=== PATIENT | male | born 1955 | race Caucasian/White ===

== ENCOUNTER → 2016-06-21 | Outpatient (REF) | payer BC ==
[~2016-06-21] MED LIST: DIGO0.12 PO; FURO40TA2 PO; GLIM4TAB PO; JANU100T PO; LISI10TA4 PO; METF1000 PO; SIMV40TA2 PO; SPIR25TA2 PO
== END ==
LOC: M LAB REF 12:05
PROVIDERS: ATTEND Nurse Practitioner Adult Health
DX: I50.42 Chronic combined systolic (congestive) and diastolic (congestive) heart failure (principal); Z95.810 Presence of automatic (implantable) cardiac defibrillator

== ENCOUNTER → 2016-06-23 | Outpatient (CLI) | payer BC ==
[~2016-06-23] VITALS: Ht 190.5 cm; Wt 103.4 kg
[~2016-06-23] MED LIST changes: +NS 1,000 ML IV SCH
--- NOTE | 2016-06-23 11:41 | ROOR ---
Patient Name: Maria Alejandra Lopez Procedure Date: 06/23/2016 11:17 AM Date of : 1955 Age: 60 Room: [facility] Gender: Male Note Status: Finalized Procedure: Colonoscopy to 40 cms + Cold Snare Polypectomy( POOR PREP) Incomplete Indications: Screening for colorectal malignant neoplasm, Last colonoscopy: 2003 Providers: Santosh Dickson MD Referring MD: ELLY WOODS JR, MD Requesting Provider: Medicines: Monitored Anesthesia Care Complications: No immediate complications. Procedure: Pre-Anesthesia Assessment: - The heart rate, respiratory rate, oxygen saturations, blood pressure, adequacy of pulmonary ventilation, and response to care were monitored throughout the procedure. The Colonoscope was introduced through the anus with the intention of advancing to the cecum. The scope was advanced to the sigmoid colon before the procedure was aborted. Medications were given. The colonoscopy was performed without difficulty. The patient tolerated the procedure well. The quality of the bowel preparation was inadequate. Findings: The perianal and digital rectal examinations were normal. A small polyp was found at 10 cm proximal to the anus. The polyp was sessile. The polyp was removed with a cold snare. Resection and retrieval were complete. Extensive amounts of stool was found in the recto-sigmoid colon, in the sigmoid colon and in the descending colon, interfering with visualization. The exam was otherwise without abnormality. Impression: - Preparation of the colon was inadequate. - One small polyp at 10 cm proximal to the anus, removed with a cold snare. Resected and retrieved. - Stool in the recto-sigmoid colon, in the sigmoid colon and in the descending colon. - The examination was otherwise normal. - The exam was suboptimal due to patient preparation. Recommendation: - Patient has a contact number available for emergencies. The signs and symptoms of potential delayed complications were discussed with the patient. Return to normal activities tomorrow. Written discharge instructions were provided to the patient. - Discharge patient to home. - Continue present medications. - Await pathology results. - Repeat colonoscopy because the bowel preparation was suboptimal. - The findings and recommendations were discussed with the patient's family. Santosh Dickson MD Santosh Dickson MD 06/23/2016 11:41:02 AM This report has been signed electronically. Number of Addenda: 0 Note Initiated On: 06/23/2016 11:17 AM Estimated Blood Loss: Estimated blood loss: none.
[2016-06-23 12:10] VITALS: BP 147/94
== END | disposition home or self-care (01) ==
LOC: M OPP 09:43
PROVIDERS: ATTEND Internal Medicine Gastroenterology
DX: Z12.11 Encounter for screening for malignant neoplasm of colon (principal); D12.8 Benign neoplasm of rectum; I50.9 Heart failure, unspecified; I25.10 Atherosclerotic heart disease of native coronary artery without angina pectoris; I10 Essential (primary) hypertension; E78.5 Hyperlipidemia, unspecified; Z95.810 Presence of automatic (implantable) cardiac defibrillator; E11.9 Type 2 diabetes mellitus without complications; Z79.84 Long term (current) use of oral hypoglycemic drugs; Z79.899 Other long term (current) drug therapy; Z80.3 Family history of malignant neoplasm of breast

== ENCOUNTER → 2016-09-21 | Outpatient (REF) | payer BC ==
[~2016-09-21] MED LIST changes: -NS 1,000 ML IV SCH
== END ==
LOC: M LAB REF 12:26
PROVIDERS: ATTEND Nurse Practitioner Adult Health
DX: Z95.810 Presence of automatic (implantable) cardiac defibrillator (principal)

== ENCOUNTER → 2017-11-02 | Outpatient (CLI) | payer BC ==
[2017-11-02 13:01] LABS: BASO # 0.1 10^3/uL (0.0-0.2); BASO % 0.8 % (0.0-1.0); EOS # 0.1 10^3/uL (0.0-0.50); EOS % 0.8 % (0.0-3.0); HEMATOCRIT 42.3 % (42.0-52.0); HEMOGLOBIN 14.9 g/dl (13.5-17.5); IMMATURE GRANULOCYTE % 0.3 % (0-3.0); LYMPH # 2.1 10^3/uL (1.5-4.5); LYMPH % 27.5 % (24.0-44.0); MEAN CORPUSCULAR HGB CONC 35.2 g/dl (32.0-36.5); MEAN CORPUSCULAR VOLUME 82.3 fl (80.0-96.0); MONO # 0.5 10^3/uL (0.0-0.8); NEUTROPHILS # 4.8 10^3/uL (1.8-7.7); NEUTROPHILS % 63.6 % (36.0-66.0); PLATELET COUNT, AUTOMATED 213 10^3/uL (150-450); RED BLOOD COUNT 5.14 10^6/uL (4.30-6.10); RED CELL DISTRIBUTION WIDTH 11.3 % (11.5-14.5); WHITE BLOOD COUNT 7.5 10^3/uL (4.0-10.0)
[2017-11-02 13:28] LABS: BLOOD UREA NITROGEN 12 MG/DL (7-18)
[2017-11-02 13:28] LABS: CREATININE FOR GFR 1.06 MG/DL (0.70-1.30); GLOMERULAR FILTRATION RATE > 60.0 (>49)
[2017-11-02 13:33] LABS: ANION GAP 10 MEQ/L (8-16); BLOOD UREA NITROGEN 12 MG/DL (7-18); CALCIUM LEVEL 9.1 MG/DL (8.8-10.2); CARBON DIOXIDE LEVEL 27 MEQ/L (21-32); CHLORIDE LEVEL 97 MEQ/L (98-107); CREATININE FOR GFR 1.07 MG/DL (0.70-1.30); GLOMERULAR FILTRATION RATE > 60.0 (>49); POTASSIUM SERUM 4.3 MEQ/L (3.5-5.1); SODIUM LEVEL 134 MEQ/L (136-145)
[2017-11-02 13:46] LABS: GLUCOSE, FASTING 490 MG/DL (70-100)
== END ==
LOC: M LAB 12:12
DX: I48.91 Unspecified atrial fibrillation (principal)
CPT/HCPCS: 82565

== ENCOUNTER → 2017-11-13 | Outpatient (CLI) | payer BC ==
[2017-11-13 13:51] LABS: BASO % 0.5 % (0.0-1.0); EOS # 0.1 10^3/uL (0.0-0.50); EOS % 0.9 % (0.0-3.0); HEMATOCRIT 42.9 % (42.0-52.0); HEMOGLOBIN 14.4 g/dl (13.5-17.5); IMMATURE GRANULOCYTE % 0.4 % (0-3.0); LYMPH # 2.1 10^3/uL (1.5-4.5); LYMPH % 26.1 % (24.0-44.0); MEAN CORPUSCULAR HGB CONC 33.6 g/dl (32.0-36.5); MEAN CORPUSCULAR VOLUME 86.3 fl (80.0-96.0); MONO # 0.7 10^3/uL (0.0-0.8); MONO % 8.4 % (0.0-5.0); NEUTROPHILS # 5.1 10^3/uL (1.8-7.7); NEUTROPHILS % 63.7 % (36.0-66.0); PLATELET COUNT, AUTOMATED 237 10^3/uL (150-450); RED BLOOD COUNT 4.97 10^6/uL (4.30-6.10); RED CELL DISTRIBUTION WIDTH 11.6 % (11.5-14.5)
[2017-11-13 14:29] LABS: ANION GAP 7 MEQ/L (8-16); BLOOD UREA NITROGEN 12 MG/DL (7-18); CARBON DIOXIDE LEVEL 31 MEQ/L (21-32); CHLORIDE LEVEL 98 MEQ/L (98-107); CREATININE FOR GFR 1.02 MG/DL (0.70-1.30); GLOMERULAR FILTRATION RATE > 60.0 (>49); POTASSIUM SERUM 4.8 MEQ/L (3.5-5.1); SODIUM LEVEL 136 MEQ/L (136-145)
[2017-11-13 14:36] LABS: GLUCOSE, FASTING 420 MG/DL (70-100)
== END ==
LOC: M LAB 13:07
DX: I48.0 Paroxysmal atrial fibrillation (principal)
CPT/HCPCS: 80048

== ENCOUNTER → 2018-01-25 | Outpatient (CLI) | payer BC ==
[2018-01-25 17:35] LABS: HEMOGLOBIN 13.5 g/dl (13.5-17.5); MEAN CORPUSCULAR HEMOGLOBIN 29.3 pg (27.0-33.0); MEAN CORPUSCULAR HGB CONC 33.8 g/dl (32.0-36.5); MEAN CORPUSCULAR VOLUME 86.8 fl (80.0-96.0); PLATELET COUNT, AUTOMATED 203 10^3/uL (150-450); RED BLOOD COUNT 4.61 10^6/uL (4.30-6.10); RED CELL DISTRIBUTION WIDTH 11.6 % (11.5-14.5)
[2018-01-25 18:42] LABS: ANION GAP 7 MEQ/L (8-16); BLOOD UREA NITROGEN 13 MG/DL (7-18); CALCIUM LEVEL 8.3 MG/DL (8.8-10.2); CARBON DIOXIDE LEVEL 28 MEQ/L (21-32); CHLORIDE LEVEL 100 MEQ/L (98-107); CREATININE FOR GFR 0.96 MG/DL (0.70-1.30); GLOMERULAR FILTRATION RATE > 60.0 (>49); GLUCOSE, FASTING 464 MG/DL (70-100); POTASSIUM SERUM 4.2 MEQ/L (3.5-5.1); SODIUM LEVEL 135 MEQ/L (136-145)
== END ==
LOC: M LAB 16:10
DX: I42.9 Cardiomyopathy, unspecified (principal)
CPT/HCPCS: 80048

== ENCOUNTER → 2018-10-01 | Outpatient (CLI) | payer BC ==
[~2018-10-01] MED LIST changes: -METF1000 PO; +METF10004 PO; +SPIR-10 PO; -SPIR25TA2 PO
[2018-10-01 20:04] LABS: BASO # 0.1 10^3/uL (0.0-0.2); BASO % 0.5 % (0.0-1.0); EOS # 0.1 10^3/uL (0.0-0.50); EOS % 0.6 % (0.0-3.0); HEMATOCRIT 41.1 % (42.0-52.0); HEMOGLOBIN 13.7 g/dl (13.5-17.5); LYMPH # 1.7 10^3/uL (1.5-4.5); LYMPH % 18.6 % (24.0-44.0); MEAN CORPUSCULAR HEMOGLOBIN 29.7 pg (27.0-33.0); MEAN CORPUSCULAR HGB CONC 33.3 g/dl (32.0-36.5); MONO # 0.9 10^3/uL (0.0-0.8); MONO % 10.1 % (0.0-5.0); NEUTROPHILS # 6.5 10^3/uL (1.8-7.7); NEUTROPHILS % 69.9 % (36.0-66.0); PLATELET COUNT, AUTOMATED 189 10^3/uL (150-450); RED BLOOD COUNT 4.62 10^6/uL (4.30-6.10); WHITE BLOOD COUNT 9.3 10^3/uL (4.0-10.0)
[2018-10-01 20:20] LABS: HEMOGLOBIN A1c 13.7 %
[2018-10-01 20:30] LABS: ALBUMIN 3.5 GM/DL (3.2-5.2); ALT/SGPT 15 U/L (12-78); BILIRUBIN,TOTAL 0.4 MG/DL (0.2-1.0); BLOOD UREA NITROGEN 9 MG/DL (7-18); C REACTIVE PROTEIN QUANTITATIV 2.94 MG/DL (0.00-0.30); CALCIUM LEVEL 8.9 MG/DL (8.8-10.2); CARBON DIOXIDE LEVEL 32 MEQ/L (21-32); CHLORIDE LEVEL 99 MEQ/L (98-107); CREATININE FOR GFR 1.03 MG/DL (0.70-1.30); GLOMERULAR FILTRATION RATE > 60.0 (>49); GLUCOSE, FASTING 399 MG/DL (70-100); POTASSIUM SERUM 3.9 MEQ/L (3.5-5.1); SODIUM LEVEL 135 MEQ/L (136-145); TOTAL PROTEIN 6.8 GM/DL (6.4-8.2)
[2018-10-01 20:37] LABS: ERYTHROCYTE SEDIMENTATION RATE 10 mm/hr (0-20)
--- NOTE | 2018-10-02 07:28 | REP ---
REASON: Foot pain after dropping heavy object on toes only. No priors. Moderate degenerative changes are seen throughout the mid foot and hind foot region. Mild degenerative changes are seen throughout the digits. There is no acute fracture. There is a large plantar calcaneal heel spur. IMPRESSION: Chronic changes. Electronically Signed by Benjamin Tena DO 10/02/2018 10:20 A
== END ==
LOC: M WUC 17:26
PROVIDERS: ATTEND Physician Assistant
DX: M19.071 Primary osteoarthritis, right ankle and foot (principal); E11.21 Type 2 diabetes mellitus with diabetic nephropathy

== ENCOUNTER → 2020-02-23 | Outpatient (CLI) | payer BC, MEDICARE ==
[~2020-02-23] MED LIST changes: -GLIM4TAB PO; +GLIM4TAB5 PO; -SIMV40TA2 PO; +SIMV40TA20 PO
[2020-02-23 11:19] LABS: BLOOD UREA NITROGEN 11 MG/DL (7-18); CALCIUM LEVEL 8.6 MG/DL (8.8-10.2); CARBON DIOXIDE LEVEL 28 MEQ/L (21-32); CHLORIDE LEVEL 102 MEQ/L (98-107); CREATININE FOR GFR 1.05 MG/DL (0.70-1.30); GLOMERULAR FILTRATION RATE > 60.0 (>49); GLUCOSE, FASTING 297 MG/DL (70-100); MAGNESIUM LEVEL 1.8 MG/DL (1.8-2.4); SODIUM LEVEL 137 MEQ/L (136-145)
== END ==
LOC: M LAB 09:28
PROVIDERS: ATTEND Physician Assistant
DX: I50.42 Chronic combined systolic (congestive) and diastolic (congestive) heart failure (principal); I25.5 Ischemic cardiomyopathy

== ENCOUNTER → 2020-07-20 | Outpatient (REF) | payer BC ==
[~2020-07-20] MED LIST changes: +LISI10TA22 PO; -LISI10TA4 PO
[2020-07-20 16:54] LABS: APPEARANCE, URINE CLEAR (CLEAR); BACTERIA, URINE AUTO NEGATIVE (NEGATIVE); BILIRUBIN, URINE AUTO NEGATIVE (NEGATIVE); BLOOD, URINE BLOOD NEGATIVE (NEGATIVE); COLOR, URINE YELLOW (YELLOW); GLUCOSE, URINE (UA) AUTO 3+ mg/dL (NEGATIVE); KETONE, URINE AUTO NEGATIVE (NEGATIVE); LEUKOCYTE ESTERASE, URINE AUTO NEGATIVE (NEGATIVE); MUCUS, URINE SMALL (NEGATIVE); NITRITE, URINE AUTO NEGATIVE (NEGATIVE); PROTEIN, URINE AUTO NEGATIVE (NEGATIVE); RBC, URINE AUTO 2 /HPF (0-3); SPECIFIC GRAVITY URINE AUTO 1.036 (1.002-1.035); SQUAMOUS EPITHELIAL CELL UR AU 0 /HPF (0-6); UROBILINOGEN, URINE AUTO 0.2 mg/dL (0.0-2.0); WBC, URINE AUTO 0 /HPF (0-3)
== END ==
LOC: M LAB REF 16:19
PROVIDERS: ATTEND Internal Medicine
DX: Z01.818 Encounter for other preprocedural examination (principal)

== ENCOUNTER 2022-01-27 09:52 | Inpatient (IN) | payer BC, MEDICARE ==
[~2022-01-27] VITALS: Ht 188 cm; Wt 86.6 kg
[~2022-01-27 09:52] MED LIST changes: +DIGOXIN 0.125 MG TAB PO SCH
[2022-01-27 12:26] LABS: RSV AMPLIFICATION NEGATIVE (NEGATIVE)
[2022-01-27 12:36] LABS: C REACTIVE PROTEIN QUANTITATIV 35.7 MG/DL (0.00-0.30); CALCIUM LEVEL 9.1 MG/DL (8.8-10.2); CREATININE FOR GFR 1.45 MG/DL (0.70-1.30); GLOMERULAR FILTRATION RATE 51.5 (>49); POTASSIUM SERUM 3.9 MEQ/L (3.5-5.1)
[2022-01-27 13:47] LABS: BASO # 0.1 10^3/uL (0.0-0.2); BASO % 0.3 % (0.0-1.0); HEMATOCRIT 35.7 % (42.0-52.0); HEMOGLOBIN 11.6 g/dl (13.5-17.5); LYMPH # 1.2 10^3/uL (1.5-5.0); LYMPH % 3.5 % (24.0-44.0); MEAN CORPUSCULAR HEMOGLOBIN 28.2 pg (27.0-33.0); MEAN CORPUSCULAR HGB CONC 32.5 g/dl (32.0-36.5); MEAN CORPUSCULAR VOLUME 86.7 fl (80.0-96.0); MONO % 6.8 % (2.0-8.0); NEUTROPHILS # 30.7 10^3/uL (1.5-8.5); PLATELET COUNT, AUTOMATED 357 10^3/uL (150-450); RED BLOOD COUNT 4.12 10^6/uL (4.30-6.10)
[2022-01-27] MEDS ORDERED: cefTRIAXone SOD 2 GM in D5W MINI-BAG PLUS 50 ML IV ONE (13:55)
[2022-01-27] MEDS ORDERED: VANCOMYCIN HCL 1,750 MG in NS 250 ML IV ONE (13:55)
[2022-01-27 14:02] LABS: MONO # 2.4 10^3/uL (0.0-0.8); WHITE BLOOD COUNT 34.9 10^3/uL (4.0-10.0)
[2022-01-27 14:15] LABS: ERYTHROCYTE SEDIMENTATION RATE 85 mm/hr (0-20)
[2022-01-27] MEDS ORDERED: VITMTA PO (14:19)
[2022-01-27] MEDS ORDERED: ASPI81TA26 PO (14:19)
[2022-01-27] MEDS ORDERED: DIGO0.123 PO (14:19)
[2022-01-27] MEDS ORDERED: ENTR1TAB PO (14:23)
[2022-01-27] MEDS ORDERED: HOME MED LIST COMPLETE! XX SCH (14:25)
[2022-01-27] MEDS ORDERED: ISOVUE-370 76% 100ML VIAL As Ordered ONE (14:39)
[2022-01-27] MEDS ORDERED: VANCOMYCIN HCL 750 MG, VIAL MATE ADAPTER 1 EACH in D5W 250 ML IV ONE (15:00)
[2022-01-27] MEDS ORDERED: GLUCAGON INJ 1MG VIAL SC PRN (15:05)
[2022-01-27] MEDS ORDERED: GLUCOSE 4GM CHEW TABLET PO PRN (15:05)
[2022-01-27] MEDS ORDERED: DEXTROSE 50% 50 ML SYRINGE IV PRN (15:05)
[2022-01-27] MEDS ORDERED: TOUJ1.2I SC (15:10)
[2022-01-27] MEDS ORDERED: FARX1TAB3 PO (15:10)
[2022-01-27] MEDS ORDERED: VANCOMYCIN HCL 1,300 MG in IV FLUID PLACE HOLDER 1 EA IV SCH (15:50)
[2022-01-27] MEDS ORDERED: VANCOMYCIN HCL 1,000 MG, VIAL MATE ADAPTER 1 EACH in D5W 250 ML IV ONE (16:00)
[2022-01-27] MEDS ORDERED: CLINDAMYCIN 900 MG in IV 1 EA IV SCH (17:00)
[2022-01-27 17:02] LABS: INR 1.32; PROTHROMBIN TIME 16.6 SECONDS (12.5-14.5)
[2022-01-27 17:03] LABS: PARTIAL THROMBOPLASTIN TIME 29.1 SECONDS (24.8-34.2)
[2022-01-27] MEDS ORDERED: INSULIN LISPRO (NovoLOG) PER UNIT SC SCH (18:00)
[2022-01-27] MEDS: ASPIRIN 81MG ENTERIC TABLET PO SCH (18:01)
[2022-01-27] MEDS: ACETAMINOPHEN TAB 650MG DOSE (2X325MG) PO PRN (18:03)
[2022-01-27] MEDS: MEROPENEM INJ 1 GM in IV 1 EA IV SCH (18:07)
[2022-01-27] MEDS ORDERED: LR 2,000 ML IV ONE (18:20)
[2022-01-27] MEDS ORDERED: HYDROMORPHONE HCL 0.5 MG/ 0.5 ML SYRINGE (J1170 PER 1) IV PRN (18:20)
[2022-01-27] MEDS ORDERED: MIDAZOLAM INJ 2MG/2ML VIAL (J2250 PER 1MG) As Ordered ONE (19:32)
[2022-01-27] MEDS ORDERED: fentaNYL 100 MCG/2 ML INJECTION As Ordered ONE (19:32)
[2022-01-27] MEDS ORDERED: LIDOCAINE 2% 100MG/5ML SDV (FOR ANES.) As Ordered ONE (19:33)
[2022-01-27] MEDS ORDERED: propofoL 200 MG/20 ML VIAL As Ordered ONE (19:33)
[2022-01-27] MEDS ORDERED: ONDANSETRON 4MG 2ML VIAL As Ordered ONE (19:36)
[2022-01-27] MEDS ORDERED: BUPIVACAINE HCL 0.5% 30ML VIAL As Ordered ONE (19:37)
[2022-01-27] MEDS ORDERED: LIDOCAINE 1% SDV 30ML VIAL As Ordered ONE (19:37)
[2022-01-27] MEDS ORDERED: CEFEPIME HCL 1 GM in D5W MINI-BAG PLUS 50 ML IV SCH (20:00)
[2022-01-27] MEDS ORDERED: MORPHINE 2 MG/ML 1ML VIAL IV PRN (21:00)
[2022-01-27] MEDS ORDERED: LR 1,000 ML IV SCH (21:00)
[2022-01-27] MEDS ORDERED: PERCOCET 5MG/325MG TAB PO PRN (21:00)
[2022-01-27] MEDS ORDERED: fentaNYL 100 MCG/2 ML INJECTION IV PRN (21:00)
[2022-01-27] MEDS ORDERED: ONDANSETRON 4MG 2ML VIAL IV PRN (21:00)
[2022-01-27 21:35] VITALS: BP 119/67
[2022-01-27] MEDS: LEVEMIR (INSULIN DETEMIR) 1 UNITS/0.01ML SC SCH (22:52)
[2022-01-27] MEDS: INSULIN LISPRO (NovoLOG) PER UNIT SC SCH (23:07)
[2022-01-27] MEDS: VANCOMYCIN HCL 1,000 MG, VIAL MATE ADAPTER 1 EACH in D5W 250 ML IV SCH (23:19)
[2022-01-28] VITALS (12 sets, daily range): BP systolic 103–115; BP diastolic 52–67; O2SAT 91–95
[2022-01-28] MEDS: MEROPENEM INJ 1 GM in IV 1 EA IV SCH ×3 (01:29→17:44)
[2022-01-28] MEDS: HEPARIN SOD (PORCINE) 5000UNITS/ML 1ML VIAL/SYRINGE SC SCH ×3 (04:59→20:28)
[2022-01-28] MEDS: ACETAMINOPHEN TAB 650MG DOSE (2X325MG) PO PRN (05:00)
[2022-01-28 06:29] LABS: HEMATOCRIT 33.5 % (42.0-52.0); MEAN CORPUSCULAR HEMOGLOBIN 28.2 pg (27.0-33.0); MEAN CORPUSCULAR HGB CONC 32.8 g/dl (32.0-36.5); MEAN CORPUSCULAR VOLUME 85.9 fl (80.0-96.0); PLATELET COUNT, AUTOMATED 353 10^3/uL (150-450); WHITE BLOOD COUNT 26.4 10^3/uL (4.0-10.0)
[2022-01-28 06:45] LABS: HEMOGLOBIN A1c 9.4 %
[2022-01-28 07:06] LABS: ALT/SGPT 11 U/L (12-78); BILIRUBIN,TOTAL 0.4 MG/DL (0.2-1.0); BLOOD UREA NITROGEN 25 MG/DL (7-18); CALCIUM LEVEL 8.8 MG/DL (8.8-10.2); CARBON DIOXIDE LEVEL 30 MEQ/L (21-32); CHLORIDE LEVEL 99 MEQ/L (98-107); CHOLESTEROL LEVEL 108 MG/DL (<200); CHOLESTEROL RISK RATIO 4.695 (<5); CREATININE FOR GFR 1.07 MG/DL (0.70-1.30); GLOMERULAR FILTRATION RATE > 60.0 (>49); GLUCOSE, FASTING 143 MG/DL (70-100); HDL CHOLESTEROL 23 MG/DL (>40); LDL CHOLESTEROL 67 MG/DL (<100); NON-HDL-C 85 MG/DL; POTASSIUM SERUM 3.7 MEQ/L (3.5-5.1); SODIUM LEVEL 135 MEQ/L (136-145); TOTAL PROTEIN 6.2 GM/DL (6.4-8.2); TRIGLYCERIDES LEVEL 90 MG/DL (<150)
[2022-01-28] MEDS: INSULIN LISPRO (NovoLOG) PER UNIT SC SCH ×4 (08:16→20:29)
[2022-01-28] MEDS: ROSUVASTATIN 10 MG TAB (CRESTOR) PO SCH (08:16)
[2022-01-28] MEDS ORDERED: FLUBLOK(EGG FREE)(QUAD)INFLUENZA VACC 0.5ML SYRINGE 18YRS & OLDER IM.IMMUN ONE (09:00)
[2022-01-28] MEDS: DIGOXIN 0.125 MG TAB PO SCH (12:14)
[2022-01-28] MEDS: VANCOMYCIN HCL 1,000 MG, VIAL MATE ADAPTER 1 EACH in D5W 250 ML IV SCH (12:14)
[2022-01-28] MEDS: DAPAGLIFLOZIN PROPANEDIOL 10MG TABLET (FARXIGA) PO SCH (14:07)
[2022-01-28] MEDS ORDERED: PREVNAR-20 VACCINE 0.5ML SYRINGE IM.IMMUN ONE (17:00)
[2022-01-28] MEDS: ASPIRIN 81MG ENTERIC TABLET PO SCH (17:44)
[2022-01-28] MEDS: LEVEMIR (INSULIN DETEMIR) 1 UNITS/0.01ML SC SCH (20:29)
[2022-01-29] VITALS (23 sets, daily range): BP systolic 108–136; BP diastolic 64–74; O2SAT 93–98
[2022-01-29] MEDS: VANCOMYCIN HCL 1,000 MG, VIAL MATE ADAPTER 1 EACH in D5W 250 ML IV SCH (00:58)
[2022-01-29] MEDS: MEROPENEM INJ 1 GM in IV 1 EA IV SCH (02:26)
[2022-01-29] MEDS: HEPARIN SOD (PORCINE) 5000UNITS/ML 1ML VIAL/SYRINGE SC SCH ×3 (06:12→21:51)
[2022-01-29 06:54] LABS: BASO # 0.1 10^3/uL (0.0-0.2); BASO % 0.3 % (0.0-1.0); EOS # 0.4 10^3/uL (0.0-0.5); EOS % 1.8 % (0.0-3.0); HEMATOCRIT 33.2 % (42.0-52.0); HEMOGLOBIN 10.7 g/dl (13.5-17.5); LYMPH # 1.9 10^3/uL (1.5-5.0); LYMPH % 9.1 % (24.0-44.0); MEAN CORPUSCULAR HEMOGLOBIN 28.2 pg (27.0-33.0); MEAN CORPUSCULAR HGB CONC 32.2 g/dl (32.0-36.5); MEAN CORPUSCULAR VOLUME 87.4 fl (80.0-96.0); MONO % 9.7 % (2.0-8.0); NEUTROPHILS # 15.9 10^3/uL (1.5-8.5); NEUTROPHILS % 78.2 % (36.0-66.0); PLATELET COUNT, AUTOMATED 375 10^3/uL (150-450); WHITE BLOOD COUNT 20.4 10^3/uL (4.0-10.0)
[2022-01-29 07:30] LABS: ALBUMIN 1.8 GM/DL (3.2-5.2); ALT/SGPT 18 U/L (12-78); BILIRUBIN,TOTAL 0.3 MG/DL (0.2-1.0); BLOOD UREA NITROGEN 24 MG/DL (7-18); CALCIUM LEVEL 8.3 MG/DL (8.8-10.2); CARBON DIOXIDE LEVEL 30 MEQ/L (21-32); CHLORIDE LEVEL 100 MEQ/L (98-107); CREATININE FOR GFR 0.98 MG/DL (0.70-1.30); GLOMERULAR FILTRATION RATE > 60.0 (>49); GLUCOSE, FASTING 124 MG/DL (70-100); POTASSIUM SERUM 3.5 MEQ/L (3.5-5.1); SODIUM LEVEL 137 MEQ/L (136-145)
[2022-01-29] MEDS: INSULIN LISPRO (NovoLOG) PER UNIT SC SCH ×4 (07:30→20:20)
[2022-01-29] MEDS: SPIRONOLACTONE 25 MG TAB PO SCH (09:00)
[2022-01-29] MEDS: cefTRIAXone SOD 1 GM in D5W MINI-BAG PLUS 50 ML IV SCH (10:08)
[2022-01-29] MEDS: ROSUVASTATIN 10 MG TAB (CRESTOR) PO SCH (10:09)
[2022-01-29] MEDS: ENTRESTO 24-26MG TABLET (SACUBITRIL/VALSARTAN) PO SCH ×2 (10:09→20:19)
[2022-01-29] MEDS: DAPAGLIFLOZIN PROPANEDIOL 10MG TABLET (FARXIGA) PO SCH (10:09)
[2022-01-29] MEDS: ACETAMINOPHEN TAB 650MG DOSE (2X325MG) PO PRN (10:10)
[2022-01-29] MEDS: DIGOXIN 0.125 MG TAB PO SCH (10:12)
[2022-01-29] MEDS: ASPIRIN 81MG ENTERIC TABLET PO SCH (17:38)
[2022-01-29] MEDS: oxyCODONE 5MG TAB PO PRN (19:46)
[2022-01-29] MEDS: LEVEMIR (INSULIN DETEMIR) 1 UNITS/0.01ML SC SCH (20:20)
[2022-01-30] VITALS (18 sets, daily range): BP systolic 105–125; BP diastolic 67–81; O2SAT 93–98
[2022-01-30] MEDS: HEPARIN SOD (PORCINE) 5000UNITS/ML 1ML VIAL/SYRINGE SC SCH ×3 (05:13→22:17)
[2022-01-30 05:41] LABS: BASO # 0.1 10^3/uL (0.0-0.2); BASO % 0.5 % (0.0-1.0); EOS # 0.6 10^3/uL (0.0-0.5); EOS % 3.7 % (0.0-3.0); HEMATOCRIT 35.1 % (42.0-52.0); LYMPH # 2.1 10^3/uL (1.5-5.0); LYMPH % 13.7 % (24.0-44.0); MEAN CORPUSCULAR HEMOGLOBIN 27.6 pg (27.0-33.0); MEAN CORPUSCULAR HGB CONC 31.3 g/dl (32.0-36.5); MEAN CORPUSCULAR VOLUME 88.2 fl (80.0-96.0); MONO # 1.5 10^3/uL (0.0-0.8); MONO % 9.9 % (2.0-8.0); NEUTROPHILS # 11.1 10^3/uL (1.5-8.5); NEUTROPHILS % 71.3 % (36.0-66.0); PLATELET COUNT, AUTOMATED 382 10^3/uL (150-450); RED BLOOD COUNT 3.98 10^6/uL (4.30-6.10); WHITE BLOOD COUNT 15.6 10^3/uL (4.0-10.0)
[2022-01-30 06:23] LABS: ALBUMIN 1.9 GM/DL (3.2-5.2); ALT/SGPT 18 U/L (12-78); BILIRUBIN,TOTAL 0.3 MG/DL (0.2-1.0); BLOOD UREA NITROGEN 19 MG/DL (7-18); CALCIUM LEVEL 8.8 MG/DL (8.8-10.2); CARBON DIOXIDE LEVEL 29 MEQ/L (21-32); CHLORIDE LEVEL 104 MEQ/L (98-107); CREATININE FOR GFR 0.89 MG/DL (0.70-1.30); GLOMERULAR FILTRATION RATE > 60.0 (>49); GLUCOSE, FASTING 188 MG/DL (70-100); POTASSIUM SERUM 3.7 MEQ/L (3.5-5.1); SODIUM LEVEL 137 MEQ/L (136-145); TOTAL PROTEIN 6.9 GM/DL (6.4-8.2)
[2022-01-30] MEDS: DAPAGLIFLOZIN PROPANEDIOL 10MG TABLET (FARXIGA) PO SCH (09:06)
[2022-01-30] MEDS: SPIRONOLACTONE 25 MG TAB PO SCH (09:06)
[2022-01-30] MEDS: INSULIN LISPRO (NovoLOG) PER UNIT SC SCH ×4 (09:06→20:40)
[2022-01-30] MEDS: ROSUVASTATIN 10 MG TAB (CRESTOR) PO SCH (09:07)
[2022-01-30] MEDS: ENTRESTO 24-26MG TABLET (SACUBITRIL/VALSARTAN) PO SCH ×2 (09:07→20:39)
[2022-01-30] MEDS: FUROSEMIDE 40 MG TAB PO SCH (09:07)
[2022-01-30] MEDS: DIGOXIN 0.125 MG TAB PO SCH (09:08)
[2022-01-30] MEDS: cefTRIAXone SOD 1 GM in D5W MINI-BAG PLUS 50 ML IV SCH ×2 (09:48→22:18)
[2022-01-30] MEDS: oxyCODONE 5MG TAB PO PRN (13:34)
[2022-01-30] MEDS: ASPIRIN 81MG ENTERIC TABLET PO SCH (17:53)
[2022-01-30] MEDS: LEVEMIR (INSULIN DETEMIR) 1 UNITS/0.01ML SC SCH (20:39)
[2022-01-31 03:57] VITALS: BP 119/72
[2022-01-31 05:17] LABS: BASO # 0.1 10^3/uL (0.0-0.2); BASO % 0.5 % (0.0-1.0); EOS # 0.5 10^3/uL (0.0-0.5); HEMATOCRIT 34.4 % (42.0-52.0); HEMOGLOBIN 10.8 g/dl (13.5-17.5); LYMPH # 2.8 10^3/uL (1.5-5.0); LYMPH % 16.5 % (24.0-44.0); MEAN CORPUSCULAR HEMOGLOBIN 27.8 pg (27.0-33.0); MEAN CORPUSCULAR HGB CONC 31.4 g/dl (32.0-36.5); MEAN CORPUSCULAR VOLUME 88.4 fl (80.0-96.0); MONO % 9.4 % (2.0-8.0); NEUTROPHILS % 69.4 % (36.0-66.0); PLATELET COUNT, AUTOMATED 407 10^3/uL (150-450); RED BLOOD COUNT 3.89 10^6/uL (4.30-6.10); WHITE BLOOD COUNT 17.2 10^3/uL (4.0-10.0)
[2022-01-31 05:27] LABS: MONO # 1.6 10^3/uL (0.0-0.8)
[2022-01-31] MEDS: HEPARIN SOD (PORCINE) 5000UNITS/ML 1ML VIAL/SYRINGE SC SCH ×3 (05:38→22:02)
[2022-01-31 05:51] LABS: ALBUMIN 1.8 GM/DL (3.2-5.2); ALT/SGPT 17 U/L (12-78); BILIRUBIN,TOTAL 0.1 MG/DL (0.2-1.0); BLOOD UREA NITROGEN 14 MG/DL (7-18); CALCIUM LEVEL 8.2 MG/DL (8.8-10.2); CARBON DIOXIDE LEVEL 31 MEQ/L (21-32); CHLORIDE LEVEL 102 MEQ/L (98-107); GLOMERULAR FILTRATION RATE > 60.0 (>49); GLUCOSE, FASTING 135 MG/DL (70-100); POTASSIUM SERUM 4.2 MEQ/L (3.5-5.1); SODIUM LEVEL 138 MEQ/L (136-145); TOTAL PROTEIN 6.3 GM/DL (6.4-8.2)
[2022-01-31 08:02] VITALS: BP 118/74
[2022-01-31] MEDS: ENTRESTO 24-26MG TABLET (SACUBITRIL/VALSARTAN) PO SCH ×2 (08:43→22:00)
[2022-01-31] MEDS: SPIRONOLACTONE 25 MG TAB PO SCH (08:43)
[2022-01-31] MEDS: DAPAGLIFLOZIN PROPANEDIOL 10MG TABLET (FARXIGA) PO SCH (08:43)
[2022-01-31] MEDS: FUROSEMIDE 40 MG TAB PO SCH (08:43)
[2022-01-31] MEDS: ROSUVASTATIN 10 MG TAB (CRESTOR) PO SCH (08:44)
[2022-01-31] MEDS: DIGOXIN 0.125 MG TAB PO SCH (08:45)
[2022-01-31] MEDS: INSULIN LISPRO (NovoLOG) PER UNIT SC SCH ×4 (08:46→22:01)
[2022-01-31] MEDS: LEVEMIR (INSULIN DETEMIR) 1 UNITS/0.01ML SC SCH ×2 (08:47→22:01)
[2022-01-31] MEDS ORDERED: AMOXICILLIN 500 MG CAP PO SCH (09:00)
[2022-01-31] MEDS: cefTRIAXone SOD 1 GM in D5W MINI-BAG PLUS 50 ML IV SCH ×2 (11:02→22:01)
[2022-01-31 12:00] VITALS: BP 118/73
[2022-01-31] MEDS: ACETAMINOPHEN TAB 650MG DOSE (2X325MG) PO PRN (12:35)
[2022-01-31 16:00] VITALS: BP 118/72
[2022-01-31] MEDS ORDERED: PERCOCET 5MG/325MG TAB PO PRN ×2 (16:25)
[2022-01-31] MEDS: ASPIRIN 81MG ENTERIC TABLET PO SCH (17:46)
[2022-01-31 19:49] VITALS: BP 109/57
[2022-02-01 03:48] VITALS: BP 118/61
[2022-02-01] MEDS: HEPARIN SOD (PORCINE) 5000UNITS/ML 1ML VIAL/SYRINGE SC SCH ×3 (05:59→20:19)
[2022-02-01 06:50] LABS: HEMATOCRIT 35.4 % (42.0-52.0); HEMOGLOBIN 11.3 g/dl (13.5-17.5); MEAN CORPUSCULAR HGB CONC 31.9 g/dl (32.0-36.5); MEAN CORPUSCULAR VOLUME 87.6 fl (80.0-96.0); PLATELET COUNT, AUTOMATED 426 10^3/uL (150-450); RED BLOOD COUNT 4.04 10^6/uL (4.30-6.10); WHITE BLOOD COUNT 16.1 10^3/uL (4.0-10.0)
[2022-02-01] MEDS: INSULIN LISPRO (NovoLOG) PER UNIT SC SCH ×4 (07:30→20:19)
[2022-02-01 07:34] LABS: ALT/SGPT 19 U/L (12-78); BILIRUBIN,TOTAL 0.3 MG/DL (0.2-1.0); BLOOD UREA NITROGEN 13 MG/DL (7-18); CALCIUM LEVEL 8.6 MG/DL (8.8-10.2); CARBON DIOXIDE LEVEL 30 MEQ/L (21-32); CHLORIDE LEVEL 103 MEQ/L (98-107); CREATININE FOR GFR 0.87 MG/DL (0.70-1.30); GLOMERULAR FILTRATION RATE > 60.0 (>49); GLUCOSE, FASTING 62 MG/DL (70-100); POTASSIUM SERUM 4.2 MEQ/L (3.5-5.1); SODIUM LEVEL 139 MEQ/L (136-145); TOTAL PROTEIN 6.7 GM/DL (6.4-8.2)
[2022-02-01 07:50] VITALS: BP 126/71
[2022-02-01] MEDS: LEVEMIR (INSULIN DETEMIR) 1 UNITS/0.01ML SC SCH ×2 (09:00→20:13)
[2022-02-01] MEDS: FUROSEMIDE 40 MG TAB PO SCH (09:17)
[2022-02-01] MEDS: ROSUVASTATIN 10 MG TAB (CRESTOR) PO SCH (09:17)
[2022-02-01] MEDS: ENTRESTO 24-26MG TABLET (SACUBITRIL/VALSARTAN) PO SCH ×2 (09:17→20:27)
[2022-02-01] MEDS: SPIRONOLACTONE 25 MG TAB PO SCH (09:17)
[2022-02-01] MEDS: cefTRIAXone SOD 1 GM in D5W MINI-BAG PLUS 50 ML IV SCH ×2 (09:18→20:19)
[2022-02-01] MEDS: DIGOXIN 0.125 MG TAB PO SCH (09:18)
[2022-02-01 16:00] VITALS: BP 120/70
[2022-02-01] MEDS: ASPIRIN 81MG ENTERIC TABLET PO SCH (17:29)
[2022-02-01 19:47] VITALS: BP 129/80
[2022-02-02 04:28] VITALS: BP 134/79
[2022-02-02] MEDS: HEPARIN SOD (PORCINE) 5000UNITS/ML 1ML VIAL/SYRINGE SC SCH ×3 (06:59→22:49)
[2022-02-02 08:26] VITALS: BP 119/71
[2022-02-02] MEDS: INSULIN LISPRO (NovoLOG) PER UNIT SC SCH ×4 (08:50→20:19)
[2022-02-02] MEDS: ROSUVASTATIN 10 MG TAB (CRESTOR) PO SCH (08:51)
[2022-02-02] MEDS: FUROSEMIDE 40 MG TAB PO SCH (08:51)
[2022-02-02] MEDS: ENTRESTO 24-26MG TABLET (SACUBITRIL/VALSARTAN) PO SCH ×2 (08:51→20:25)
[2022-02-02] MEDS: DIGOXIN 0.125 MG TAB PO SCH (08:51)
[2022-02-02] MEDS: SPIRONOLACTONE 25 MG TAB PO SCH (08:51)
[2022-02-02] MEDS ORDERED: LEVEMIR (INSULIN DETEMIR) 1 UNITS/0.01ML SC SCH ×2 (09:00)
[2022-02-02 09:11] LABS: HEMATOCRIT 36.2 % (42.0-52.0); HEMOGLOBIN 11.5 g/dl (13.5-17.5); MEAN CORPUSCULAR HEMOGLOBIN 28.5 pg (27.0-33.0); MEAN CORPUSCULAR HGB CONC 31.8 g/dl (32.0-36.5); MEAN CORPUSCULAR VOLUME 89.8 fl (80.0-96.0); PLATELET COUNT, AUTOMATED 452 10^3/uL (150-450); RED BLOOD COUNT 4.03 10^6/uL (4.30-6.10)
[2022-02-02 09:41] LABS: ALBUMIN 2.1 GM/DL (3.2-5.2); ALT/SGPT 18 U/L (12-78); BILIRUBIN,TOTAL 0.2 MG/DL (0.2-1.0); BLOOD UREA NITROGEN 13 MG/DL (7-18); CALCIUM LEVEL 8.4 MG/DL (8.8-10.2); CARBON DIOXIDE LEVEL 29 MEQ/L (21-32); CHLORIDE LEVEL 102 MEQ/L (98-107); CREATININE FOR GFR 0.96 MG/DL (0.70-1.30); GLOMERULAR FILTRATION RATE > 60.0 (>49); GLUCOSE, FASTING 233 MG/DL (70-100); POTASSIUM SERUM 4.9 MEQ/L (3.5-5.1); SODIUM LEVEL 135 MEQ/L (136-145); TOTAL PROTEIN 6.8 GM/DL (6.4-8.2)
[2022-02-02] MEDS: cefTRIAXone SOD 1 GM in D5W MINI-BAG PLUS 50 ML IV SCH ×2 (11:14→22:48)
[2022-02-02 16:09] VITALS: BP 125/72
[2022-02-02] MEDS: ASPIRIN 81MG ENTERIC TABLET PO SCH (17:15)
[2022-02-02] MEDS: DAPAGLIFLOZIN PROPANEDIOL 10MG TABLET (FARXIGA) PO SCH (17:16)
[2022-02-02] MEDS: LEVEMIR (INSULIN DETEMIR) 1 UNITS/0.01ML SC SCH (20:24)
[2022-02-02 20:56] VITALS: BP 118/69
[2022-02-02 22:05] VITALS: BP 118/72
[2022-02-02] MEDS: ACETAMINOPHEN TAB 650MG DOSE (2X325MG) PO PRN (22:47)
[2022-02-03] MEDS: HEPARIN SOD (PORCINE) 5000UNITS/ML 1ML VIAL/SYRINGE SC SCH (05:39)
[2022-02-03 06:00] VITALS: BP 120/71
[2022-02-03 06:12] LABS: HEMATOCRIT 35.2 % (42.0-52.0); HEMOGLOBIN 11.1 g/dl (13.5-17.5); MEAN CORPUSCULAR HEMOGLOBIN 27.9 pg (27.0-33.0); MEAN CORPUSCULAR HGB CONC 31.5 g/dl (32.0-36.5); MEAN CORPUSCULAR VOLUME 88.4 fl (80.0-96.0); PLATELET COUNT, AUTOMATED 415 10^3/uL (150-450); RED BLOOD COUNT 3.98 10^6/uL (4.30-6.10); WHITE BLOOD COUNT 12.9 10^3/uL (4.0-10.0)
[2022-02-03 06:47] LABS: ALBUMIN 2.1 GM/DL (3.2-5.2); ALT/SGPT 17 U/L (12-78); BILIRUBIN,TOTAL 0.1 MG/DL (0.2-1.0); BLOOD UREA NITROGEN 14 MG/DL (7-18); CALCIUM LEVEL 8.4 MG/DL (8.8-10.2); CARBON DIOXIDE LEVEL 31 MEQ/L (21-32); CHLORIDE LEVEL 103 MEQ/L (98-107); CREATININE FOR GFR 0.92 MG/DL (0.70-1.30); GLOMERULAR FILTRATION RATE > 60.0 (>49); GLUCOSE, FASTING 144 MG/DL (70-100); POTASSIUM SERUM 4.4 MEQ/L (3.5-5.1); SODIUM LEVEL 139 MEQ/L (136-145); TOTAL PROTEIN 6.8 GM/DL (6.4-8.2)
[2022-02-03] MEDS ORDERED: AMOX500T PO (07:37)
[2022-02-03] MEDS ORDERED: PROB1CAP10 PO (07:37)
[2022-02-03] MEDS ORDERED: CRES40TA PO (07:45)
[2022-02-03] MEDS ORDERED: TRAM50TA2 PO (07:46)
[2022-02-03] MEDS ORDERED: TOUJ1.2I SC (07:49)
[2022-02-03] MEDS: FUROSEMIDE 40 MG TAB PO SCH (08:12)
[2022-02-03] MEDS: INSULIN LISPRO (NovoLOG) PER UNIT SC SCH (08:13)
[2022-02-03] MEDS: ENTRESTO 24-26MG TABLET (SACUBITRIL/VALSARTAN) PO SCH (08:13)
[2022-02-03] MEDS: DAPAGLIFLOZIN PROPANEDIOL 10MG TABLET (FARXIGA) PO SCH (08:13)
[2022-02-03] MEDS: DIGOXIN 0.125 MG TAB PO SCH (08:13)
[2022-02-03] MEDS: SPIRONOLACTONE 25 MG TAB PO SCH (08:13)
[2022-02-03] MEDS: ROSUVASTATIN 10 MG TAB (CRESTOR) PO SCH (08:13)
[2022-02-03] MEDS ORDERED: LEVEMIR (INSULIN DETEMIR) 1 UNITS/0.01ML SC SCH (09:00)
[2022-02-03] MEDS ORDERED: PREVNAR-20 VACCINE 0.5ML SYRINGE IM.IMMUN ONE (10:00)
[2022-02-03] MEDS: cefTRIAXone SOD 1 GM in D5W MINI-BAG PLUS 50 ML IV SCH (10:35)
== END 2022-02-03 12:09 | disposition home or self-care (01) | DRG 710 ==
LOC: M ED 09:52 → M ED INP 14:57 → M PCU 21:38 → M MSPAV 02-02 22:01
PROVIDERS: ADMIT Student in an Organized Health Care Education/Training Program; ATTEND Internal Medicine
PROC: 0QDN0ZZ Extraction of Right Metatarsal, Open Approach (ICD-10-PCS; 2022-01-27)
PROC: 0Y6M0ZB Detachment at Right Foot, Partial 2nd Ray, Open Approach (ICD-10-PCS; principal; 2022-01-27 17:00)
PROC: 0LBV0ZZ Excision of Right Foot Tendon, Open Approach (ICD-10-PCS; 2022-01-31)
DX: A41.9 Sepsis, unspecified organism (principal); M72.6 Necrotizing fasciitis; A48.0 Gas gangrene; N17.9 Acute kidney failure, unspecified; E11.621 Type 2 diabetes mellitus with foot ulcer; E11.42 Type 2 diabetes mellitus with diabetic polyneuropathy; E11.52 Type 2 diabetes mellitus with diabetic peripheral angiopathy with gangrene; I50.9 Heart failure, unspecified; E11.69 Type 2 diabetes mellitus with other specified complication; L03.115 Cellulitis of right lower limb; L97.419 Non-pressure chronic ulcer of right heel and midfoot with unspecified severity; E78.00 Pure hypercholesterolemia, unspecified; Z95.810 Presence of automatic (implantable) cardiac defibrillator; I25.10 Atherosclerotic heart disease of native coronary artery without angina pectoris; Z91.14 Patient's other noncompliance with medication regimen; Z79.4 Long term (current) use of insulin; Z79.82 Long term (current) use of aspirin; Z79.899 Other long term (current) drug therapy; M86.8X7 Other osteomyelitis, ankle and foot; B95.4 Other streptococcus as the cause of diseases classified elsewhere

== ENCOUNTER 2022-03-24 16:44 | Inpatient (IN) | payer BC, MEDICARE ==
[~2022-03-24] VITALS: Ht 190.5 cm; Wt 84.0 kg
[~2022-03-24 16:44] MED LIST changes: +AMOX500T PO; +ASPI81TA26 PO; +CRES40TA PO; +DIGO0.123 PO; -DIGOXIN 0.125 MG TAB PO SCH; +ENTR1TAB PO; +FARX1TAB3 PO; +PROB1CAP10 PO; +TOUJ1.2I SC; +TRAM50TA2 PO; +UNRESOLVED CLARIFICATION ENTRY XX SCH; +VITMTA PO
[2022-03-24] MEDS ORDERED: PIPERACILLIN/TAZOBACTAM SOD 3.375 GM in D5W MINI-BAG PLUS 50 ML IV SCH (18:45)
[2022-03-24] MEDS ORDERED: VANCOMYCIN HCL 1,000 MG, VIAL MATE ADAPTER 1 EACH in NS 250 ML IV SCH (18:45)
[2022-03-24] MEDS ORDERED: GLUCAGON INJ 1MG VIAL SC PRN (18:50)
[2022-03-24] MEDS ORDERED: GLUCOSE 4GM CHEW TABLET PO PRN (18:50)
[2022-03-24] MEDS ORDERED: INSULIN LISPRO (NovoLOG) PER UNIT SC SCH (18:50)
[2022-03-24] MEDS ORDERED: DEXTROSE 50% 50 ML SYRINGE IV PRN (18:50)
[2022-03-24 19:12] LABS: BASO % 0.3 % (0.0-1.0); EOS # 0.1 10^3/uL (0.0-0.5); EOS % 0.6 % (0.0-3.0); HEMATOCRIT 31.3 % (42.0-52.0); HEMOGLOBIN 10.1 g/dl (13.5-17.5); LYMPH # 1.7 10^3/uL (1.5-5.0); LYMPH % 18.8 % (24.0-44.0); MEAN CORPUSCULAR HEMOGLOBIN 28.2 pg (27.0-33.0); MEAN CORPUSCULAR HGB CONC 32.3 g/dl (32.0-36.5); MEAN CORPUSCULAR VOLUME 87.4 fl (80.0-96.0); MONO % 10.8 % (2.0-8.0); NEUTROPHILS # 6.2 10^3/uL (1.5-8.5); NEUTROPHILS % 69.2 % (36.0-66.0); PLATELET COUNT, AUTOMATED 213 10^3/uL (150-450); RED BLOOD COUNT 3.58 10^6/uL (4.30-6.10)
[2022-03-24 19:36] LABS: BLOOD UREA NITROGEN 20 MG/DL (9-23); CALCIUM LEVEL 8.2 MG/DL (8.3-10.6); CARBON DIOXIDE LEVEL 30 MMOL/L (20-31); CHLORIDE LEVEL 98 MMOL/L (98-107); CREATININE FOR GFR 1.09 MG/DL (0.70-1.30); GLOMERULAR FILTRATION RATE > 60.0 (>49); GLUCOSE, FASTING 182 MG/DL (74-106); POTASSIUM SERUM 3.8 MMOL/L (3.5-5.1); SODIUM LEVEL 134 MMOL/L (136-145)
[2022-03-24] MEDS: INSULIN LISPRO (NovoLOG) PER UNIT SC SCH (19:54)
[2022-03-24] MEDS ORDERED: ELIQ5TAB PO (20:01)
[2022-03-24] MEDS ORDERED: ROSU40TA4 PO (20:01)
[2022-03-24] MEDS ORDERED: TRAM50TA2 PO (20:01)
[2022-03-24] MEDS ORDERED: TOUJ1.2I SC (20:01)
[2022-03-24] MEDS ORDERED: BACTDSTA PO (20:01)
[2022-03-24] MEDS ORDERED: CEPH500C PO (20:01)
[2022-03-24] MEDS ORDERED: PROB1CAP10 PO (20:12)
[2022-03-24] MEDS ORDERED: VITMTA PO (20:12)
[2022-03-24] MEDS ORDERED: ACET500T15 PO (20:12)
[2022-03-24] MEDS ORDERED: INSU100I12 SQ ×2 (20:12)
[2022-03-24] MEDS ORDERED: HOME MED LIST COMPLETE! XX SCH (20:15)
[2022-03-24 20:25] LABS: ERYTHROCYTE SEDIMENTATION RATE 56 mm/hr (0-20)
[2022-03-24] MEDS ORDERED: VANCOMYCIN HCL 1,000 MG, VIAL MATE ADAPTER 1 EACH in D5W 250 ML IV ONE (21:00)
[2022-03-24 21:31] VITALS: BP 112/64
[2022-03-24] MEDS: ASPIRIN 81MG ENTERIC TABLET PO SCH (21:38)
[2022-03-24] MEDS: ROSUVASTATIN 10 MG TAB (CRESTOR) PO SCH (21:38)
[2022-03-24] MEDS ORDERED: VANCOMYCIN HCL 750 MG, VIAL MATE ADAPTER 1 EACH in D5W 250 ML IV ONE (22:00)
[2022-03-24] MEDS: ENTRESTO 24-26MG TABLET (SACUBITRIL/VALSARTAN) PO SCH (23:27)
[2022-03-24] MEDS: LR 1,000 ML IV SCH (23:38)
[2022-03-25] MEDS: INSULIN LISPRO (NovoLOG) PER UNIT SC SCH ×4 (05:51→17:59)
[2022-03-25] MEDS: VANCOMYCIN HCL 1,000 MG, VIAL MATE ADAPTER 1 EACH in D5W 250 ML IV SCH ×2 (05:51→18:00)
[2022-03-25 06:00] VITALS: BP 116/66
[2022-03-25] MEDS: LR 1,000 ML IV SCH ×3 (07:59→23:59)
[2022-03-25 08:40] LABS: BASO % 0.3 % (0.0-1.0); EOS # 0.1 10^3/uL (0.0-0.5); EOS % 1.5 % (0.0-3.0); HEMATOCRIT 33.2 % (42.0-52.0); HEMOGLOBIN 10.5 g/dl (13.5-17.5); LYMPH # 2.1 10^3/uL (1.5-5.0); LYMPH % 24.5 % (24.0-44.0); MEAN CORPUSCULAR HEMOGLOBIN 27.7 pg (27.0-33.0); MEAN CORPUSCULAR HGB CONC 31.6 g/dl (32.0-36.5); MEAN CORPUSCULAR VOLUME 87.6 fl (80.0-96.0); MONO % 10.9 % (2.0-8.0); NEUTROPHILS # 5.4 10^3/uL (1.5-8.5); NEUTROPHILS % 62.5 % (36.0-66.0); PLATELET COUNT, AUTOMATED 224 10^3/uL (150-450); RED BLOOD COUNT 3.79 10^6/uL (4.30-6.10); WHITE BLOOD COUNT 8.7 10^3/uL (4.0-10.0)
[2022-03-25] MEDS: FUROSEMIDE 40 MG TAB PO SCH (08:57)
[2022-03-25] MEDS: ENTRESTO 24-26MG TABLET (SACUBITRIL/VALSARTAN) PO SCH ×2 (08:57→20:02)
[2022-03-25] MEDS: DIGOXIN 0.125 MG TAB PO SCH (08:57)
[2022-03-25] MEDS: LACTOBACILLUS ACIDOPHILUS CAP (BACID) PO SCH (08:57)
[2022-03-25] MEDS ORDERED: LEVEMIR (INSULIN DETEMIR) 1 UNITS/0.01ML SC ONE (09:00)
[2022-03-25] MEDS ORDERED: PREVNAR-20 VACCINE 0.5ML SYRINGE IM.IMMUN ONE (09:00)
[2022-03-25 09:06] LABS: BLOOD UREA NITROGEN 15 MG/DL (9-23); CALCIUM LEVEL 8.4 MG/DL (8.3-10.6); CARBON DIOXIDE LEVEL 25 MMOL/L (20-31); CHLORIDE LEVEL 102 MMOL/L (98-107); CREATININE FOR GFR 0.86 MG/DL (0.70-1.30); GLOMERULAR FILTRATION RATE > 60.0 (>49); GLUCOSE, FASTING 107 MG/DL (74-106); SODIUM LEVEL 138 MMOL/L (136-145)
[2022-03-25 14:00] VITALS: BP 114/65
[2022-03-25] MEDS: ASPIRIN 81MG ENTERIC TABLET PO SCH (20:02)
[2022-03-25] MEDS: ROSUVASTATIN 10 MG TAB (CRESTOR) PO SCH (20:02)
[2022-03-25 22:00] VITALS: BP 109/61
[2022-03-25] MEDS ORDERED: HEPARIN SOD (PORCINE) 5000UNITS/ML 1ML VIAL/SYRINGE SQ SCH (22:00)
[2022-03-26] VITALS (9 sets, daily range): BP systolic 105–122; BP diastolic 57–65
[2022-03-26] MEDS: INSULIN LISPRO (NovoLOG) PER UNIT SC SCH ×5 (00:12→21:00)
[2022-03-26] MEDS: VANCOMYCIN HCL 1,000 MG, VIAL MATE ADAPTER 1 EACH in D5W 250 ML IV SCH ×2 (04:37→17:25)
[2022-03-26] MEDS: LR 1,000 ML IV SCH ×3 (04:39→23:59)
[2022-03-26 05:39] LABS: BASO # 0.1 10^3/uL (0.0-0.2); BASO % 0.5 % (0.0-1.0); EOS # 0.2 10^3/uL (0.0-0.5); EOS % 2.6 % (0.0-3.0); HEMATOCRIT 29.8 % (42.0-52.0); HEMOGLOBIN 9.5 g/dl (13.5-17.5); LYMPH # 2.5 10^3/uL (1.5-5.0); LYMPH % 27.7 % (24.0-44.0); MEAN CORPUSCULAR HEMOGLOBIN 27.8 pg (27.0-33.0); MEAN CORPUSCULAR HGB CONC 31.9 g/dl (32.0-36.5); MEAN CORPUSCULAR VOLUME 87.1 fl (80.0-96.0); MONO # 1.1 10^3/uL (0.0-0.8); MONO % 11.6 % (2.0-8.0); NEUTROPHILS # 5.2 10^3/uL (1.5-8.5); NEUTROPHILS % 57.2 % (36.0-66.0); PLATELET COUNT, AUTOMATED 253 10^3/uL (150-450); RED BLOOD COUNT 3.42 10^6/uL (4.30-6.10); WHITE BLOOD COUNT 9.1 10^3/uL (4.0-10.0)
[2022-03-26 06:05] LABS: BLOOD UREA NITROGEN 11 MG/DL (9-23); CALCIUM LEVEL 8.1 MG/DL (8.3-10.6); CARBON DIOXIDE LEVEL 29 MMOL/L (20-31); CHLORIDE LEVEL 103 MMOL/L (98-107); CREATININE FOR GFR 0.83 MG/DL (0.70-1.30); GLOMERULAR FILTRATION RATE > 60.0 (>49); GLUCOSE, FASTING 99 MG/DL (74-106); POTASSIUM SERUM 3.7 MMOL/L (3.5-5.1); SODIUM LEVEL 140 MMOL/L (136-145)
[2022-03-26 07:58] LABS: MAGNESIUM LEVEL 1.8 MG/DL (1.8-2.4)
[2022-03-26] MEDS: LACTOBACILLUS ACIDOPHILUS CAP (BACID) PO SCH (08:05)
[2022-03-26] MEDS: ENTRESTO 24-26MG TABLET (SACUBITRIL/VALSARTAN) PO SCH ×2 (08:06→20:10)
[2022-03-26] MEDS: DIGOXIN 0.125 MG TAB PO SCH (08:06)
[2022-03-26] MEDS: FUROSEMIDE 40 MG TAB PO SCH (08:06)
[2022-03-26] MEDS: LEVEMIR (INSULIN DETEMIR) 1 UNITS/0.01ML SC SCH (08:07)
[2022-03-26] MEDS ORDERED: BUPIVACAINE HCL 0.5% 30ML VIAL As Ordered ONE (13:49)
[2022-03-26] MEDS ORDERED: LIDOCAINE 1% SDV 30ML VIAL As Ordered ONE (13:49)
[2022-03-26] MEDS ORDERED: fentaNYL 100 MCG/2 ML INJECTION As Ordered ONE ×2 (14:13→14:50)
[2022-03-26] MEDS ORDERED: propofoL 200 MG/20 ML VIAL As Ordered ONE ×2 (14:13→15:05)
[2022-03-26] MEDS ORDERED: MIDAZOLAM INJ 2MG/2ML VIAL (J2250 PER 1MG) As Ordered ONE ×2 (14:13→14:50)
[2022-03-26] MEDS: traMADol 50 MG TAB PO PRN (18:13)
[2022-03-26] MEDS: ASPIRIN 81MG ENTERIC TABLET PO SCH (20:10)
[2022-03-26] MEDS: ROSUVASTATIN 10 MG TAB (CRESTOR) PO SCH (20:10)
[2022-03-27] MEDS: VANCOMYCIN HCL 1,000 MG, VIAL MATE ADAPTER 1 EACH in D5W 250 ML IV SCH ×2 (05:09→17:04)
[2022-03-27] MEDS: traMADol 50 MG TAB PO PRN ×2 (05:13→20:01)
[2022-03-27 06:00] VITALS: BP 103/60
[2022-03-27 07:16] LABS: BASO # 0.1 10^3/uL (0.0-0.2); BASO % 0.4 % (0.0-1.0); EOS # 0.4 10^3/uL (0.0-0.5); EOS % 3.1 % (0.0-3.0); HEMATOCRIT 29.5 % (42.0-52.0); HEMOGLOBIN 9.3 g/dl (13.5-17.5); LYMPH # 2.2 10^3/uL (1.5-5.0); LYMPH % 19.2 % (24.0-44.0); MEAN CORPUSCULAR HGB CONC 31.5 g/dl (32.0-36.5); MEAN CORPUSCULAR VOLUME 88.9 fl (80.0-96.0); MONO # 1.2 10^3/uL (0.0-0.8); MONO % 10.7 % (2.0-8.0); NEUTROPHILS # 7.7 10^3/uL (1.5-8.5); PLATELET COUNT, AUTOMATED 287 10^3/uL (150-450); RED BLOOD COUNT 3.32 10^6/uL (4.30-6.10); WHITE BLOOD COUNT 11.6 10^3/uL (4.0-10.0)
[2022-03-27 07:46] LABS: BLOOD UREA NITROGEN 9 MG/DL (9-23); CALCIUM LEVEL 7.9 MG/DL (8.3-10.6); CARBON DIOXIDE LEVEL 32 MMOL/L (20-31); CHLORIDE LEVEL 101 MMOL/L (98-107); CREATININE FOR GFR 0.81 MG/DL (0.70-1.30); GLOMERULAR FILTRATION RATE > 60.0 (>49); GLUCOSE, FASTING 206 MG/DL (74-106); POTASSIUM SERUM 4.1 MMOL/L (3.5-5.1); SODIUM LEVEL 138 MMOL/L (136-145)
[2022-03-27] MEDS: INSULIN LISPRO (NovoLOG) PER UNIT SC SCH ×4 (08:08→19:56)
[2022-03-27] MEDS: FUROSEMIDE 40 MG TAB PO SCH (08:09)
[2022-03-27] MEDS: LEVEMIR (INSULIN DETEMIR) 1 UNITS/0.01ML SC SCH (08:09)
[2022-03-27] MEDS: LACTOBACILLUS ACIDOPHILUS CAP (BACID) PO SCH (08:09)
[2022-03-27] MEDS: ENTRESTO 24-26MG TABLET (SACUBITRIL/VALSARTAN) PO SCH ×2 (08:09→20:02)
[2022-03-27] MEDS: DIGOXIN 0.125 MG TAB PO SCH (08:11)
[2022-03-27] MEDS: APIXABAN 5 MG TAB (ELIQUIS) PO SCH ×2 (11:08→20:02)
[2022-03-27 14:00] VITALS: BP 102/60
[2022-03-27 19:50] VITALS: BP 105/60
[2022-03-27] MEDS: ASPIRIN 81MG ENTERIC TABLET PO SCH (20:02)
[2022-03-27] MEDS: ROSUVASTATIN 10 MG TAB (CRESTOR) PO SCH (20:02)
[2022-03-28] MEDS: VANCOMYCIN HCL 1,000 MG, VIAL MATE ADAPTER 1 EACH in D5W 250 ML IV SCH (04:33)
[2022-03-28] MEDS: traMADol 50 MG TAB PO PRN (04:34)
[2022-03-28 05:17] VITALS: BP 109/65
[2022-03-28 06:13] LABS: BASO # 0.1 10^3/uL (0.0-0.2); BASO % 0.5 % (0.0-1.0); EOS # 0.5 10^3/uL (0.0-0.5); EOS % 4.9 % (0.0-3.0); HEMATOCRIT 31.9 % (42.0-52.0); HEMOGLOBIN 9.8 g/dl (13.5-17.5); LYMPH # 2.9 10^3/uL (1.5-5.0); LYMPH % 26.9 % (24.0-44.0); MEAN CORPUSCULAR HEMOGLOBIN 27.8 pg (27.0-33.0); MEAN CORPUSCULAR HGB CONC 30.7 g/dl (32.0-36.5); MEAN CORPUSCULAR VOLUME 90.4 fl (80.0-96.0); MONO # 1.1 10^3/uL (0.0-0.8); MONO % 10.4 % (2.0-8.0); NEUTROPHILS # 6.1 10^3/uL (1.5-8.5); NEUTROPHILS % 56.7 % (36.0-66.0); PLATELET COUNT, AUTOMATED 326 10^3/uL (150-450); RED BLOOD COUNT 3.53 10^6/uL (4.30-6.10); WHITE BLOOD COUNT 10.8 10^3/uL (4.0-10.0)
[2022-03-28 06:39] LABS: BLOOD UREA NITROGEN 7 MG/DL (9-23); CARBON DIOXIDE LEVEL 32 MMOL/L (20-31); CHLORIDE LEVEL 99 MMOL/L (98-107); CREATININE FOR GFR 0.82 MG/DL (0.70-1.30); GLOMERULAR FILTRATION RATE > 60.0 (>49); GLUCOSE, FASTING 186 MG/DL (74-106); POTASSIUM SERUM 4.1 MMOL/L (3.5-5.1); SODIUM LEVEL 136 MMOL/L (136-145)
[2022-03-28] MEDS: LEVEMIR (INSULIN DETEMIR) 1 UNITS/0.01ML SC SCH (08:17)
[2022-03-28] MEDS: ENTRESTO 24-26MG TABLET (SACUBITRIL/VALSARTAN) PO SCH (08:18)
[2022-03-28] MEDS: FUROSEMIDE 40 MG TAB PO SCH (08:18)
[2022-03-28] MEDS: DIGOXIN 0.125 MG TAB PO SCH (08:18)
[2022-03-28] MEDS: INSULIN LISPRO (NovoLOG) PER UNIT SC SCH ×2 (08:18→12:11)
[2022-03-28] MEDS: LACTOBACILLUS ACIDOPHILUS CAP (BACID) PO SCH (08:18)
[2022-03-28] MEDS: APIXABAN 5 MG TAB (ELIQUIS) PO SCH (08:19)
[2022-03-28] MEDS ORDERED: LEVO1TAB39 PO (11:39)
== END 2022-03-28 13:00 | disposition home or self-care (01) | DRG 982 ==
LOC: EDSTATUS 17:21 → M MS5PR 17:24
PROVIDERS: ADMIT Internal Medicine; ATTEND Internal Medicine
PROC: 0SGM04Z Fusion of Right Metatarsal-Phalangeal Joint with Internal Fixation Device, Open Approach (ICD-10-PCS; principal; 2022-03-26 10:00)
DX: E11.628 Type 2 diabetes mellitus with other skin complications (principal); I50.22 Chronic systolic (congestive) heart failure; L03.90 Cellulitis, unspecified; Z95.810 Presence of automatic (implantable) cardiac defibrillator; I48.91 Unspecified atrial fibrillation; E78.5 Hyperlipidemia, unspecified; I25.10 Atherosclerotic heart disease of native coronary artery without angina pectoris; Z89.421 Acquired absence of other right toe(s); Z79.01 Long term (current) use of anticoagulants; Z79.4 Long term (current) use of insulin; Z79.82 Long term (current) use of aspirin; Z79.899 Other long term (current) drug therapy

== ENCOUNTER → 2022-04-03 | Outpatient (REF) | payer MEDICARE, OTHER ==
[~2022-04-03] MED LIST changes: +ACET500T15 PO; +BACTDSTA PO; +CEPH500C PO; +ELIQ5TAB PO; +INSU100I12 SQ; +LEVO1TAB39 PO; +ROSU40TA4 PO; -UNRESOLVED CLARIFICATION ENTRY XX SCH
== END ==
LOC: M LAB REF 12:18
PROVIDERS: ATTEND Internal Medicine
DX: E11.65 Type 2 diabetes mellitus with hyperglycemia (principal); E11.621 Type 2 diabetes mellitus with foot ulcer; E11.40 Type 2 diabetes mellitus with diabetic neuropathy, unspecified

== ENCOUNTER 2022-07-28 16:37 | Inpatient (IN) | payer MEDICARE, OTHER ==
[~2022-07-28] VITALS: Ht 188 cm; Wt 90.0 kg
[2022-07-28] MEDS ORDERED: SIMV40TA20 PO (17:05)
[2022-07-28] MEDS ORDERED: MORPHINE 2 MG/ML 1ML VIAL IV PRN (18:00)
[2022-07-28 18:46] LABS: BASO # 0.1 10^3/uL (0.0-0.2); BASO % 0.8 % (0.0-1.0); EOS # 0.1 10^3/uL (0.0-0.5); EOS % 0.8 % (0.0-3.0); HEMATOCRIT 37.9 % (42.0-52.0); HEMOGLOBIN 12.2 g/dl (13.5-17.5); LYMPH # 2.2 10^3/uL (1.5-5.0); LYMPH % 24.7 % (24.0-44.0); MEAN CORPUSCULAR HEMOGLOBIN 28.2 pg (27.0-33.0); MEAN CORPUSCULAR HGB CONC 32.2 g/dl (32.0-36.5); MEAN CORPUSCULAR VOLUME 87.5 fl (80.0-96.0); MONO % 11.6 % (2.0-8.0); NEUTROPHILS # 5.4 10^3/uL (1.5-8.5); NEUTROPHILS % 61.8 % (36.0-66.0); PLATELET COUNT, AUTOMATED 240 10^3/uL (150-450); RED BLOOD COUNT 4.33 10^6/uL (4.30-6.10); WHITE BLOOD COUNT 8.8 10^3/uL (4.0-10.0)
[2022-07-28 19:00] LABS: ERYTHROCYTE SEDIMENTATION RATE 72 mm/hr (0-20)
[2022-07-28 19:17] LABS: ALBUMIN 3.5 G/DL (3.2-5.2); ALKALINE PHOSPHATASE 93 U/L (46-116); ALT/SGPT 16 U/L (7.0-40); AST/SGOT < 8 U/L (<34); BILIRUBIN,DIRECT 0.2 MG/DL (<0.4); BILIRUBIN,TOTAL 0.4 MG/DL (0.3-1.2); BLOOD UREA NITROGEN 11 MG/DL (9-23); CALCIUM LEVEL 8.9 MG/DL (8.3-10.6); CARBON DIOXIDE LEVEL 27 MMOL/L (20-31); CHLORIDE LEVEL 102 MMOL/L (98-107); CREATININE FOR GFR 0.92 MG/DL (0.70-1.30); GLOMERULAR FILTRATION RATE > 60.0 (>49); GLUCOSE, FASTING 160 MG/DL (74-106); POTASSIUM SERUM 4.3 MMOL/L (3.5-5.1); SODIUM LEVEL 136 MMOL/L (136-145); TOTAL PROTEIN 7.5 G/DL (5.7-8.2)
[2022-07-28] MEDS ORDERED: PIPERACILLIN/TAZOBACTAM SOD 3.375 GM in D5W MINI-BAG PLUS 50 ML IV ONE (19:55)
[2022-07-28 20:09] LABS: RSV AMPLIFICATION NEGATIVE (NEGATIVE)
[2022-07-28] MEDS ORDERED: ACETAMINOPHEN TAB 650MG DOSE (2X325MG) PO PRN (22:00)
[2022-07-28] MEDS ORDERED: LEXA1TAB PO (22:33)
[2022-07-28] MEDS ORDERED: PROBCAP14 PO (22:33)
[2022-07-28] MEDS ORDERED: SPIR-10 PO (22:33)
[2022-07-28] MEDS ORDERED: ACET-897 PO (22:34)
[2022-07-28] MEDS ORDERED: HOME MED LIST COMPLETE! XX SCH (22:35)
[2022-07-28 22:48] VITALS: BP 129/84
[2022-07-29] MEDS ORDERED: DEXTROSE 50% 50ML SYRINGE IV PRN ×2 (01:15→10:45)
[2022-07-29] MEDS ORDERED: GLUCAGON INJ 1MG VIAL SC PRN ×2 (01:15→10:45)
[2022-07-29] MEDS ORDERED: GLUCOSE 4GM CHEW TABLET PO PRN ×2 (01:15→10:45)
[2022-07-29] MEDS ORDERED: VANCOMYCIN HCL 1,000 MG, VIAL MATE ADAPTER 1 EACH in D5W 250 ML IV ONE (02:00)
[2022-07-29] MEDS: INSULIN LISPRO (NovoLOG) PER UNIT SC SCH ×5 (02:21→20:50)
[2022-07-29] MEDS ORDERED: VANCOMYCIN HCL 750 MG, VIAL MATE ADAPTER 1 EACH in D5W 250 ML IV ONE (03:00)
[2022-07-29 06:00] VITALS: BP 126/71
[2022-07-29] MEDS: ENTRESTO 24-26MG TABLET (SACUBITRIL/VALSARTAN) PO SCH ×2 (08:47→20:48)
[2022-07-29] MEDS: PIPERACILLIN/TAZOBACTAM SOD 3.375 GM in D5W MINI-BAG PLUS 50 ML IV SCH ×3 (08:47→20:50)
[2022-07-29] MEDS: DIGOXIN 0.125 MG TAB PO SCH (08:47)
[2022-07-29] MEDS: MULTIVITAMINS/MINERALS THERAP 1 TAB PO SCH (08:47)
[2022-07-29] MEDS: SPIRONOLACTONE 25 MG TAB PO SCH (08:48)
[2022-07-29] MEDS: FUROSEMIDE 40 MG TAB PO SCH (08:48)
[2022-07-29] MEDS: ESCITALOPRAM OXALATE 10 MG TAB (LEXAPRO) PO SCH (08:48)
[2022-07-29] MEDS: traMADol 50 MG TAB PO PRN (08:51)
[2022-07-29] MEDS ORDERED: DAPAGLIFLOZIN PROPANEDIOL 10MG TABLET (FARXIGA) PO SCH (09:00)
[2022-07-29] MEDS: SILVER SULFADIAZINE 1% CR 50 GM JAR TOP SCH ×2 (10:29→20:52)
[2022-07-29] MEDS: VANCOMYCIN HCL 1,000 MG, VIAL MATE ADAPTER 1 EACH in NS 250 ML IV SCH ×2 (10:39→22:23)
[2022-07-29 11:56] LABS: HEMATOCRIT 36.8 % (42.0-52.0); HEMOGLOBIN 11.6 g/dl (13.5-17.5); MEAN CORPUSCULAR HEMOGLOBIN 27.8 pg (27.0-33.0); MEAN CORPUSCULAR HGB CONC 31.5 g/dl (32.0-36.5); PLATELET COUNT, AUTOMATED 228 10^3/uL (150-450); RED BLOOD COUNT 4.18 10^6/uL (4.30-6.10); WHITE BLOOD COUNT 7.8 10^3/uL (4.0-10.0)
[2022-07-29 12:31] LABS: BLOOD UREA NITROGEN 11 MG/DL (9-23); CALCIUM LEVEL 8.4 MG/DL (8.3-10.6); CARBON DIOXIDE LEVEL 26 MMOL/L (20-31); CHLORIDE LEVEL 103 MMOL/L (98-107); CREATININE FOR GFR 0.87 MG/DL (0.70-1.30); GLOMERULAR FILTRATION RATE > 60.0 (>49); GLUCOSE, FASTING 119 MG/DL (74-106); POTASSIUM SERUM 4.4 MMOL/L (3.5-5.1); SODIUM LEVEL 137 MMOL/L (136-145)
[2022-07-29 12:45] LABS: HEMOGLOBIN A1c 8.9 % (4.0-6.0)
[2022-07-29 14:00] VITALS: BP 119/68
[2022-07-29] MEDS: SIMVASTATIN 40 MG TAB PO SCH (20:49)
[2022-07-29] MEDS: APIXABAN 5 MG TAB (ELIQUIS) PO SCH (20:49)
[2022-07-29] MEDS: LEVEMIR (INSULIN DETEMIR) 1 UNITS/0.01ML SC SCH (20:51)
[2022-07-29 22:00] VITALS: BP 116/66
[2022-07-30] MEDS: PIPERACILLIN/TAZOBACTAM SOD 3.375 GM in D5W MINI-BAG PLUS 50 ML IV SCH ×2 (02:29→08:47)
[2022-07-30 06:00] VITALS: BP 112/62
[2022-07-30 06:54] LABS: HEMATOCRIT 36.9 % (42.0-52.0); HEMOGLOBIN 11.6 g/dl (13.5-17.5); MEAN CORPUSCULAR HGB CONC 31.4 g/dl (32.0-36.5); MEAN CORPUSCULAR VOLUME 89.1 fl (80.0-96.0); PLATELET COUNT, AUTOMATED 232 10^3/uL (150-450); RED BLOOD COUNT 4.14 10^6/uL (4.30-6.10)
[2022-07-30 07:25] LABS: BLOOD UREA NITROGEN 15 MG/DL (9-23); CALCIUM LEVEL 8.4 MG/DL (8.3-10.6); CARBON DIOXIDE LEVEL 31 MMOL/L (20-31); CHLORIDE LEVEL 104 MMOL/L (98-107); CREATININE FOR GFR 1.11 MG/DL (0.70-1.30); GLOMERULAR FILTRATION RATE > 60.0 (>49); GLUCOSE, FASTING 158 MG/DL (74-106); POTASSIUM SERUM 4.2 MMOL/L (3.5-5.1); SODIUM LEVEL 139 MMOL/L (136-145)
[2022-07-30 07:29] LABS: ERYTHROCYTE SEDIMENTATION RATE 56 mm/hr (0-20)
[2022-07-30] MEDS: INSULIN LISPRO (NovoLOG) PER UNIT SC SCH ×4 (08:48→21:00)
[2022-07-30] MEDS: MULTIVITAMINS/MINERALS THERAP 1 TAB PO SCH (08:49)
[2022-07-30] MEDS: SILVER SULFADIAZINE 1% CR 50 GM JAR TOP SCH ×2 (08:49→21:44)
[2022-07-30] MEDS: DIGOXIN 0.125 MG TAB PO SCH (08:49)
[2022-07-30] MEDS: ENTRESTO 24-26MG TABLET (SACUBITRIL/VALSARTAN) PO SCH ×2 (08:49→21:08)
[2022-07-30] MEDS: ESCITALOPRAM OXALATE 10 MG TAB (LEXAPRO) PO SCH (08:49)
[2022-07-30] MEDS: SPIRONOLACTONE 25 MG TAB PO SCH (08:49)
[2022-07-30] MEDS: APIXABAN 5 MG TAB (ELIQUIS) PO SCH ×2 (08:50→21:08)
[2022-07-30] MEDS: FUROSEMIDE 40 MG TAB PO SCH (08:50)
[2022-07-30 12:05] LABS: VANCOMYCIN LEVEL TROUGH 17.3 UG/ML (10.0-20.0)
[2022-07-30] MEDS: VANCOMYCIN HCL 1,000 MG, VIAL MATE ADAPTER 1 EACH in NS 250 ML IV SCH ×2 (12:24→23:34)
[2022-07-30 20:41] VITALS: BP 124/64
[2022-07-30] MEDS: LEVEMIR (INSULIN DETEMIR) 1 UNITS/0.01ML SC SCH (21:07)
[2022-07-30] MEDS: SIMVASTATIN 40 MG TAB PO SCH (21:08)
[2022-07-30] MEDS: traMADol 50 MG TAB PO PRN (21:09)
[2022-07-30 22:00] VITALS: BP 124/64
[2022-07-31 06:00] VITALS: BP 122/65
[2022-07-31 06:37] LABS: MEAN CORPUSCULAR HEMOGLOBIN 28.2 pg (27.0-33.0); MEAN CORPUSCULAR HGB CONC 31.6 g/dl (32.0-36.5); MEAN CORPUSCULAR VOLUME 89.2 fl (80.0-96.0); PLATELET COUNT, AUTOMATED 236 10^3/uL (150-450); RED BLOOD COUNT 4.26 10^6/uL (4.30-6.10); WHITE BLOOD COUNT 7.4 10^3/uL (4.0-10.0)
[2022-07-31 06:45] LABS: ERYTHROCYTE SEDIMENTATION RATE 58 mm/hr (0-20)
[2022-07-31 07:04] LABS: BLOOD UREA NITROGEN 13 MG/DL (9-23); CALCIUM LEVEL 8.1 MG/DL (8.3-10.6); CARBON DIOXIDE LEVEL 31 MMOL/L (20-31); CHLORIDE LEVEL 106 MMOL/L (98-107); CREATININE FOR GFR 0.91 MG/DL (0.70-1.30); GLOMERULAR FILTRATION RATE > 60.0 (>49); GLUCOSE, FASTING 122 MG/DL (74-106); POTASSIUM SERUM 4.2 MMOL/L (3.5-5.1); SODIUM LEVEL 141 MMOL/L (136-145)
[2022-07-31] MEDS: APIXABAN 5 MG TAB (ELIQUIS) PO SCH (07:54)
[2022-07-31] MEDS: ENTRESTO 24-26MG TABLET (SACUBITRIL/VALSARTAN) PO SCH (07:55)
[2022-07-31] MEDS: SPIRONOLACTONE 25 MG TAB PO SCH (07:55)
[2022-07-31] MEDS: MULTIVITAMINS/MINERALS THERAP 1 TAB PO SCH (07:55)
[2022-07-31] MEDS: FUROSEMIDE 40 MG TAB PO SCH (07:55)
[2022-07-31] MEDS: ESCITALOPRAM OXALATE 10 MG TAB (LEXAPRO) PO SCH (07:56)
[2022-07-31] MEDS: INSULIN LISPRO (NovoLOG) PER UNIT SC SCH (07:56)
[2022-07-31] MEDS: DIGOXIN 0.125 MG TAB PO SCH (07:57)
[2022-07-31] MEDS: SILVER SULFADIAZINE 1% CR 50 GM JAR TOP SCH (07:58)
[2022-07-31] MEDS ORDERED: ZYVO1TAB PO (08:08)
[2022-07-31] MEDS ORDERED: ACET-897 PO (10:57)
[2022-07-31] MEDS ORDERED: OXYC1TAB23 PO (10:57)
== END 2022-07-31 12:10 | disposition home health service (06) | DRG 638 ==
LOC: M ED 16:37 → M ED INP 21:23 → EEVIPCON 21:23 → M MS5PR 22:50
PROVIDERS: ADMIT Internal Medicine; ATTEND Internal Medicine
PROC: 0JBQ0ZX Excision of Right Foot Subcutaneous Tissue and Fascia, Open Approach, Diagnostic (ICD-10-PCS; principal; 2022-07-29)
DX: E11.621 Type 2 diabetes mellitus with foot ulcer (principal); I50.22 Chronic systolic (congestive) heart failure; I48.91 Unspecified atrial fibrillation; F32.A Depression, unspecified; L97.519 Non-pressure chronic ulcer of other part of right foot with unspecified severity; L03.031 Cellulitis of right toe; L08.9 Local infection of the skin and subcutaneous tissue, unspecified; E78.5 Hyperlipidemia, unspecified; Z95.810 Presence of automatic (implantable) cardiac defibrillator; Z89.421 Acquired absence of other right toe(s); Z79.4 Long term (current) use of insulin; Z79.01 Long term (current) use of anticoagulants; Z79.82 Long term (current) use of aspirin; Z79.899 Other long term (current) drug therapy; Z20.822 Contact with and (suspected) exposure to COVID-19; Z85.840 Personal history of malignant neoplasm of eye

== ENCOUNTER → 2022-08-08 | Outpatient (REF) | payer MEDICARE, OTHER ==
[~2022-08-08] MED LIST changes: +ACET-897 PO; +LEXA1TAB PO; +OXYC1TAB23 PO; +PROBCAP14 PO; +ZYVO1TAB PO
== END ==
LOC: M LAB REF 12:29
PROVIDERS: ATTEND Internal Medicine
DX: M86.271 Subacute osteomyelitis, right ankle and foot (principal)

== ENCOUNTER → 2023-05-08 | Outpatient (REF) | payer MEDICARE, OTHER ==
[2023-05-10 10:04] LABS: DRVV SCREEN 35.4 SECONDS
[2023-05-10 10:12] LABS: PTT LUPUS TYPE ANTICOAG SCREEN 0.91 (0-1.20)
== END ==
LOC: M LAB REF 11:58
PROVIDERS: ATTEND Internal Medicine
DX: D68.69 Other thrombophilia (principal); E11.40 Type 2 diabetes mellitus with diabetic neuropathy, unspecified; Z79.01 Long term (current) use of anticoagulants

== ENCOUNTER → 2023-05-08 | Outpatient (REF) | payer MEDICARE, OTHER | LOC: M LAB REF 12:04 | PROVIDERS: ATTEND Internal Medicine | DX: D68.69 Other thrombophilia (principal); E11.40 Type 2 diabetes mellitus with diabetic neuropathy, unspecified ==

== ENCOUNTER → 2024-02-11 | Outpatient (REF) | payer MEDICARE, BC ==
[~2024-02-11] MED LIST changes: -ROSU40TA4 PO; +ROSU40TA81 PO
== END ==
LOC: M LAB REF 16:29
PROVIDERS: ATTEND Podiatrist Foot & Ankle Surgery
DX: L03.116 Cellulitis of left lower limb (principal); L03.032 Cellulitis of left toe

== ENCOUNTER → 2024-06-24 | Outpatient (CLI) | payer MEDICARE, BC | LOC: M WUC 11:52 | PROVIDERS: ATTEND Nurse Practitioner Family | DX: R05.9 Cough, unspecified (principal); R09.1 Pleurisy ==

== ENCOUNTER 2024-08-08 17:25 | Inpatient (IN) | payer BC, MEDICARE ==
[~2024-08-08] VITALS: Ht 182.9 cm; Wt 103.6 kg
[2024-08-08 18:50] LABS: BASO # 0.1 10^3/uL (0.0-0.2); BASO % 0.7 % (0.0-1.0); EOS # 0.1 10^3/uL (0.0-0.5); EOS % 0.9 % (0.0-3.0); HEMATOCRIT 42.4 % (42.0-52.0); LYMPH # 1.4 10^3/uL (1.5-5.0); LYMPH % 19.9 % (24.0-44.0); MEAN CORPUSCULAR HEMOGLOBIN 25.7 pg (27.0-33.0); MEAN CORPUSCULAR HGB CONC 30.7 g/dl (32.0-36.5); MONO # 0.7 10^3/uL (0.0-0.8); MONO % 10.2 % (2.0-8.0); NEUTROPHILS # 4.8 10^3/uL (1.5-8.5); PLATELET COUNT, AUTOMATED 195 10^3/uL (150-450); RED BLOOD COUNT 5.05 10^6/uL (4.30-6.10)
[2024-08-08 19:15] LABS: BILIRUBIN,DIRECT 0.4 MG/DL (<0.4); CALCIUM LEVEL 8.5 MG/DL (8.3-10.6); CREATININE FOR GFR 1.2 MG/DL (0.70-1.30); GLOMERULAR FILTRATION RATE 65.1 (>42); POTASSIUM SERUM 4.3 MMOL/L (3.5-5.1); TOTAL PROTEIN 6.9 G/DL (5.7-8.2)
[2024-08-09] MEDS: FUROSEMIDE 40MG/4ML VIAL IV ONE (01:50)
[2024-08-09 02:35] LABS: INR 1.27; PARTIAL THROMBOPLASTIN TIME 33.7 SECONDS (24.8-34.2); PROTHROMBIN TIME 16.2 SECONDS (12.5-14.5)
[2024-08-09] MEDS ORDERED: GLUCOSE 4 GM CHEW PO PRN (02:35)
[2024-08-09] MEDS ORDERED: GLUCAGON INJ 1MG VIAL SC PRN (02:35)
[2024-08-09] MEDS ORDERED: DEXTROSE 50% 50ML SYRINGE IV PRN (02:35)
[2024-08-09 02:36] LABS: CK-MB VALUE MASS 5.8 NG/ML (<3.6)
[2024-08-09 02:43] LABS: MB/CK RELATIVE INDEX 2.66 (< OR =4)
[2024-08-09] MEDS ORDERED: MOM 30ML SUSPENSION UDC PO PRN (02:50)
[2024-08-09] MEDS ORDERED: OXYC1TAB23 PO (03:23)
[2024-08-09] MEDS ORDERED: INSU100I60 SC (03:23)
[2024-08-09] MEDS ORDERED: VALS1TAB66 PO (03:23)
[2024-08-09] MEDS ORDERED: ACET-683 PO (03:23)
[2024-08-09] MEDS ORDERED: HOME MED LIST COMPLETE! XX SCH (03:25)
[2024-08-09 04:37] VITALS: BP 129/89; TEMP 97.9; O2SAT 99
[2024-08-09] MEDS: FUROSEMIDE 40MG/4ML VIAL IV SCH (05:34)
[2024-08-09 06:43] LABS: HEMATOCRIT 40.4 % (42.0-52.0); HEMOGLOBIN 12.5 g/dl (13.5-17.5); MEAN CORPUSCULAR HEMOGLOBIN 25.9 pg (27.0-33.0); MEAN CORPUSCULAR HGB CONC 30.9 g/dl (32.0-36.5); MEAN CORPUSCULAR VOLUME 83.8 fl (80.0-96.0); PLATELET COUNT, AUTOMATED 174 10^3/uL (150-450); RED BLOOD COUNT 4.82 10^6/uL (4.30-6.10); WHITE BLOOD COUNT 6.8 10^3/uL (4.0-10.0)
[2024-08-09 07:37] LABS: ALBUMIN 2.8 G/DL (3.2-5.2); CALCIUM LEVEL 8.4 MG/DL (8.3-10.6); CREATININE FOR GFR 1.12 MG/DL (0.70-1.30); GLOMERULAR FILTRATION RATE 70.7 (>42); MAGNESIUM LEVEL 1.7 MG/DL (1.8-2.4); POTASSIUM SERUM 3.8 MMOL/L (3.5-5.1); TOTAL PROTEIN 6.5 G/DL (5.7-8.2)
[2024-08-09] MEDS: INSULIN LISPRO (NovoLOG) PER UNIT SC SCH ×2 (08:13→21:00)
[2024-08-09] MEDS: SPIRONOLACTONE 12.5MG PER 1/2 TABLET PO SCH (08:13)
[2024-08-09 08:14] VITALS: BP 129/90
[2024-08-09] MEDS: LanTUS (INSULIN GLARGINE INJ) 1 UNITS/0.01 ML SC SCH (08:16)
[2024-08-09] MEDS: APIXABAN 5 MG TAB (ELIQUIS) PO SCH (08:16)
[2024-08-09] MEDS: ASPIRIN 81MG ENTERIC TABLET PO SCH (08:16)
[2024-08-09] MEDS: LACTOBACILLUS ACIDOPHILUS CAP (BACID) PO SCH (08:16)
[2024-08-09] MEDS: ESCITALOPRAM OXALATE 10 MG TAB (LEXAPRO) PO SCH (08:17)
[2024-08-09] MEDS: DAPAGLIFLOZIN PROPANEDIOL 10MG TABLET (FARXIGA) PO SCH (08:17)
[2024-08-09] MEDS: MAG SULF 1GM/100ML (MAG RUN) 1 GM in IV 1 EA IV ONE (11:02)
[2024-08-09] MEDS: PERCOCET 5MG/325MG TAB PO PRN (11:53)
[2024-08-09 12:00] VITALS: BP 130/88; TEMP 97.2; O2SAT 97
[2024-08-09 19:40] VITALS: BP 124/86; TEMP 97.3; O2SAT 98
[2024-08-09] MEDS: DIGOXIN 0.125 MG TAB PO SCH (21:14)
[2024-08-09] MEDS: VALSARTAN 80 MG TAB (DIOVAN) PO SCH (21:14)
[2024-08-09] MEDS: MAALOX 30 ML SUSP *UDC PO PRN (22:23)
[2024-08-09 23:06] LABS: CK-MB VALUE MASS 3.7 NG/ML (<3.6)
[2024-08-09 23:08] LABS: MB/CK RELATIVE INDEX 3.21 (< OR =4)
[2024-08-09 23:09] LABS: CALCIUM LEVEL 8.7 MG/DL (8.3-10.6); CREATININE FOR GFR 1.24 MG/DL (0.70-1.30); GLOMERULAR FILTRATION RATE 62.6 (>42); MAGNESIUM LEVEL 1.8 MG/DL (1.8-2.4); POTASSIUM SERUM 3.7 MMOL/L (3.5-5.1)
[2024-08-10 00:36] LABS: CK-MB VALUE MASS 3.3 NG/ML (<3.6); MB/CK RELATIVE INDEX 3.23 (< OR =4)
[2024-08-10 02:19] LABS: CK-MB VALUE MASS 2.4 NG/ML (<3.6)
[2024-08-10 02:23] LABS: MB/CK RELATIVE INDEX 2.69 (< OR =4)
[2024-08-10 05:03] VITALS: BP 130/88; TEMP 97.5; O2SAT 96
[2024-08-10 06:45] LABS: BASO # 0.1 10^3/uL (0.0-0.2); BASO % 0.9 % (0.0-1.0); EOS # 0.2 10^3/uL (0.0-0.5); EOS % 2.7 % (0.0-3.0); HEMATOCRIT 38.3 % (42.0-52.0); HEMOGLOBIN 11.7 g/dl (13.5-17.5); LYMPH # 1.7 10^3/uL (1.5-5.0); LYMPH % 29.4 % (24.0-44.0); MEAN CORPUSCULAR HEMOGLOBIN 25.1 pg (27.0-33.0); MEAN CORPUSCULAR HGB CONC 30.5 g/dl (32.0-36.5); MEAN CORPUSCULAR VOLUME 82.2 fl (80.0-96.0); MONO # 0.7 10^3/uL (0.0-0.8); MONO % 11.6 % (2.0-8.0); NEUTROPHILS # 3.2 10^3/uL (1.5-8.5); NEUTROPHILS % 55.1 % (36.0-66.0); PLATELET COUNT, AUTOMATED 183 10^3/uL (150-450); RED BLOOD COUNT 4.66 10^6/uL (4.30-6.10); WHITE BLOOD COUNT 5.9 10^3/uL (4.0-10.0)
[2024-08-10 07:12] LABS: CALCIUM LEVEL 8.4 MG/DL (8.3-10.6); CREATININE FOR GFR 1.19 MG/DL (0.70-1.30); GLOMERULAR FILTRATION RATE 65.7 (>42); MAGNESIUM LEVEL 1.8 MG/DL (1.8-2.4); POTASSIUM SERUM 3.4 MMOL/L (3.5-5.1)
[2024-08-10] MEDS: POTASSIUM CHLORIDE 10MEQ SR TABLET PO ONE ×2 (08:31→17:54)
[2024-08-10] MEDS: ATORVASTATIN 20 MG TAB PO SCH (08:31)
[2024-08-10 08:34] VITALS: BP 128/87
[2024-08-10] MEDS: METOPROLOL TART 12.5 MG PER 1/2 TAB PO SCH (09:41)
[2024-08-10] MEDS: LanTUS (INSULIN GLARGINE INJ) 1 UNITS/0.01 ML SC SCH (09:42)
[2024-08-10] MEDS: MAG SULF 1GM/100ML (MAG RUN) 1 GM in IV 1 EA IV ONE (11:20)
[2024-08-10 12:00] VITALS: BP 140/90; TEMP 97.2; O2SAT 98
[2024-08-10 15:12] LABS: PROCALCITONIN 0.08 ng/ml
[2024-08-10 20:20] VITALS: BP 112/74; TEMP 97.8; O2SAT 98
[2024-08-11 04:00] VITALS: BP 116/76; TEMP 97.3; O2SAT 97
[2024-08-11 05:05] LABS: BASO # 0.1 10^3/uL (0.0-0.2); BASO % 0.7 % (0.0-1.0); EOS # 0.1 10^3/uL (0.0-0.5); HEMATOCRIT 38.8 % (42.0-52.0); HEMOGLOBIN 11.9 g/dl (13.5-17.5); LYMPH # 1.9 10^3/uL (1.5-5.0); LYMPH % 26.6 % (24.0-44.0); MEAN CORPUSCULAR HEMOGLOBIN 25.2 pg (27.0-33.0); MEAN CORPUSCULAR HGB CONC 30.7 g/dl (32.0-36.5); MEAN CORPUSCULAR VOLUME 82.2 fl (80.0-96.0); MONO # 0.8 10^3/uL (0.0-0.8); MONO % 11.3 % (2.0-8.0); NEUTROPHILS # 4.2 10^3/uL (1.5-8.5); NEUTROPHILS % 59.1 % (36.0-66.0); PLATELET COUNT, AUTOMATED 205 10^3/uL (150-450); RED BLOOD COUNT 4.72 10^6/uL (4.30-6.10); WHITE BLOOD COUNT 7.1 10^3/uL (4.0-10.0)
[2024-08-11 05:28] LABS: CALCIUM LEVEL 8.7 MG/DL (8.3-10.6); CREATININE FOR GFR 1.19 MG/DL (0.70-1.30); GLOMERULAR FILTRATION RATE 65.7 (>42); MAGNESIUM LEVEL 1.9 MG/DL (1.8-2.4); POTASSIUM SERUM 3.7 MMOL/L (3.5-5.1)
[2024-08-11 12:00] VITALS: BP 117/75; TEMP 97.7; O2SAT 96
[2024-08-11 20:16] VITALS: BP 115/74; TEMP 98.1; O2SAT 90
[2024-08-12 04:37] VITALS: BP 115/77; TEMP 98.1; O2SAT 98
[2024-08-12 05:15] LABS: BASO % 0.5 % (0.0-1.0); EOS # 0.1 10^3/uL (0.0-0.5); EOS % 1.6 % (0.0-3.0); HEMATOCRIT 38.4 % (42.0-52.0); LYMPH # 1.8 10^3/uL (1.5-5.0); LYMPH % 24.5 % (24.0-44.0); MEAN CORPUSCULAR HEMOGLOBIN 25.8 pg (27.0-33.0); MEAN CORPUSCULAR HGB CONC 31.3 g/dl (32.0-36.5); MEAN CORPUSCULAR VOLUME 82.6 fl (80.0-96.0); MONO # 0.8 10^3/uL (0.0-0.8); NEUTROPHILS # 4.6 10^3/uL (1.5-8.5); NEUTROPHILS % 62.1 % (36.0-66.0); PLATELET COUNT, AUTOMATED 187 10^3/uL (150-450); RED BLOOD COUNT 4.65 10^6/uL (4.30-6.10); WHITE BLOOD COUNT 7.3 10^3/uL (4.0-10.0)
[2024-08-12 05:19] LABS: CALCIUM LEVEL 8.6 MG/DL (8.3-10.6); CREATININE FOR GFR 1.17 MG/DL (0.70-1.30); GLOMERULAR FILTRATION RATE 67.1 (>42); MAGNESIUM LEVEL 1.8 MG/DL (1.8-2.4); POTASSIUM SERUM 3.6 MMOL/L (3.5-5.1)
[2024-08-12 08:09] VITALS: BP 114/75
[2024-08-12] MEDS ORDERED: METO1TAB87 PO (10:43)
[2024-08-12] MEDS ORDERED: FURO40TA2 PO (10:43)
[2024-08-12] MEDS ORDERED: ATOR1TAB21 PO (10:43)
== END 2024-08-12 12:32 | disposition home or self-care (01) | DRG 291 ==
LOC: M ED 17:25 → M ED INP 17:26 → EEVIPCON 17:26 → M MSPAV 08-09 04:37 → OBSVTOIN 08-11 15:00
PROVIDERS: ADMIT Family Medicine; ATTEND Internal Medicine
PROC: B246ZZZ Ultrasonography of Right and Left Heart (ICD-10-PCS; principal; 2024-08-11)
DX: I11.0 Hypertensive heart disease with heart failure (principal); I50.23 Acute on chronic systolic (congestive) heart failure; Z66 Do not resuscitate; I48.91 Unspecified atrial fibrillation; E11.9 Type 2 diabetes mellitus without complications; E78.5 Hyperlipidemia, unspecified; E83.42 Hypomagnesemia; I25.10 Atherosclerotic heart disease of native coronary artery without angina pectoris; F32.A Depression, unspecified; M54.9 Dorsalgia, unspecified; G89.29 Other chronic pain; I42.0 Dilated cardiomyopathy; Z79.01 Long term (current) use of anticoagulants; Z79.82 Long term (current) use of aspirin; Z89.421 Acquired absence of other right toe(s); Z79.4 Long term (current) use of insulin; Z79.899 Other long term (current) drug therapy; Z95.810 Presence of automatic (implantable) cardiac defibrillator; E87.6 Hypokalemia

== ENCOUNTER 2024-10-20 14:16 | Inpatient (IN) | payer MEDICARE ==
[~2024-10-20] VITALS: Ht 190.5 cm; Wt 74.9 kg
[~2024-10-20 14:16] MED LIST changes: +ACET-683 PO; +AMOX875T2 PO; +ATOR1TAB21 PO; +ATOR40TA75 PO; +INSU100I60 SC; +LEXA1TAB2 PO; +METO1TAB87 PO; +METO25TA4 PO; +SEMA0.257 SQ; +VALS1TAB66 PO; +WARF-18 PO
[2024-10-20 17:26] LABS: BASO # 0.0 10^3/uL (0.0-0.2); BASO % 0.2 % (0.0-1.0); EOS # 0.0 10^3/uL (0.0-0.5); EOS % 0.0 % (0.0-3.0); LYMPH # 0.9 10^3/uL (1.5-5.0); LYMPH % 3.7 % (24.0-44.0); MONO # 2.1 10^3/uL (0.0-0.8); MONO % 8.8 % (2.0-8.0); NEUTROPHILS # 20.3 10^3/uL (1.5-8.5); NEUTROPHILS % 86.2 % (36.0-66.0); PLATELET COUNT, AUTOMATED 328 10^3/uL (150-450)
[2024-10-20 17:42] LABS: ERYTHROCYTE SEDIMENTATION RATE 94 mm/hr (0-20)
[2024-10-20 17:47] LABS: INR 1.46
[2024-10-20] MEDS ORDERED: ISOVUE-370 76% 100 ML VIAL As Ordered ONE (17:49)
[2024-10-20 17:50] LABS: ALT/SGPT < 9 U/L (7.0-40); AST/SGOT 19 U/L (<34); CALCIUM LEVEL 8.8 MG/DL (8.3-10.6); CARBON DIOXIDE LEVEL 36 MMOL/L (20-31); CHLORIDE LEVEL 91 MMOL/L (98-107); CREATININE FOR GFR 1.33 MG/DL (0.70-1.30); GLOMERULAR FILTRATION RATE 57.2 (>42); POTASSIUM SERUM 3.5 MMOL/L (3.5-5.1); SODIUM LEVEL 137 MMOL/L (136-145)
[2024-10-20 18:21] LABS: C REACTIVE PROTEIN QUANTITATIV 22.61 MG/DL (<1.0)
[2024-10-20] MEDS ORDERED: LEXA1TAB PO (18:51)
[2024-10-20] MEDS ORDERED: TORS20TA2 PO (18:52)
[2024-10-20] MEDS ORDERED: HOME MED LIST COMPLETE! XX SCH (18:55)
[2024-10-20] MEDS: ceFAZolin SOD 1 GM in DEXTROSE 5% (D5W) ADV/MINI-BAG 50 ML IV ONE (19:59)
[2024-10-20] MEDS: VANCOMYCIN HCL 1,750 MG, VIAL MATE ADAPTER 1 EACH in NS 500 ML IV ONE (20:39)
[2024-10-20 20:44] LABS: MAGNESIUM LEVEL 1.4 MG/DL (1.8-2.4)
[2024-10-20] MEDS ORDERED: MOM 30 ML SUSPENSION UDC PO PRN (20:55)
[2024-10-20] MEDS ORDERED: MAALOX 30 ML SUSP *UDC PO PRN (20:55)
[2024-10-20] MEDS ORDERED: DEXTROSE 50% 50 ML SYRINGE IV PRN (20:55)
[2024-10-20] MEDS ORDERED: GLUCAGON INJ 1 MG VIAL SC PRN (20:55)
[2024-10-20] MEDS ORDERED: GLUCOSE 4 GM CHEW PO PRN (20:55)
[2024-10-20] MEDS ORDERED: METOPROLOL TART 12.5 MG PER 1/2 TAB PO SCH (21:00)
[2024-10-20] MEDS ORDERED: LanTUS (INSULIN GLARGINE INJ) 1 UNITS/0.01 ML SC SCH (21:00)
[2024-10-20] MEDS: INSULIN LISPRO (NovoLOG) PER UNIT SC SCH (21:38)
[2024-10-20] MEDS: MAGNESIUM OXIDE 400 MG TAB PO SCH (21:51)
[2024-10-20] MEDS: DOCUSATE SODIUM 100 MG CAPSULE PO SCH (21:51)
[2024-10-20] MEDS: DIGOXIN 0.125 MG TAB PO SCH (21:51)
[2024-10-20] MEDS: MAG SULF 1GM/100ML (MAG RUN) 1 GM in IV 1 EA IV SCH (21:52)
[2024-10-20] MEDS: LanTUS (INSULIN GLARGINE INJ) 1 UNITS/0.01 ML SC SCH (22:21)
[2024-10-20] MEDS: PIPERACILLIN/TAZOBACTAM SOD 4.5 GM in DEXTROSE 5% (D5W) ADV/MINI-BAG 50 ML IV SCH (22:51)
[2024-10-21] MEDS: METOPROLOL 5 MG/5 ML VIAL IV SCH (03:06)
[2024-10-21 03:13] LABS: CALCIUM LEVEL 7.3 MG/DL (8.3-10.6); CARBON DIOXIDE LEVEL 32.0 MMOL/L (20-31); CHLORIDE LEVEL 96.0 MMOL/L (98-107); CREATININE FOR GFR 1.04 MG/DL (0.70-1.30); GLOMERULAR FILTRATION RATE 76.8 (>42); MAGNESIUM LEVEL 3.5 MG/DL (1.8-2.4); POTASSIUM SERUM 2.7 MMOL/L (3.5-5.1); SODIUM LEVEL 136.0 MMOL/L (136-145)
[2024-10-21] MEDS: POTASSIUM CHLORIDE 10MEQ SR TABLET PO ONE (03:34)
[2024-10-21] MEDS: KCL 10MEQ/100ML SWI (KRUN) 10 MEQ in IV 1 EA IV SCH (03:36)
[2024-10-21 06:31] LABS: PLATELET COUNT, AUTOMATED 297 10^3/uL (150-450)
[2024-10-21 07:05] LABS: ALT/SGPT < 9 U/L (7.0-40); AST/SGOT 18 U/L (<34); CALCIUM LEVEL 8.7 MG/DL (8.3-10.6); CARBON DIOXIDE LEVEL 34 MMOL/L (20-31); CHLORIDE LEVEL 93 MMOL/L (98-107); CREATININE FOR GFR 1.16 MG/DL (0.70-1.30); GLOMERULAR FILTRATION RATE 67.3 (>42); MAGNESIUM LEVEL 2.1 MG/DL (1.8-2.4); POTASSIUM SERUM 3.7 MMOL/L (3.5-5.1); SODIUM LEVEL 139 MMOL/L (136-145)
[2024-10-21] MEDS: VANCOMYCIN HCL 1,000 MG, VIAL MATE ADAPTER 1 EACH in NS 250 ML IV SCH (07:49)
[2024-10-21] MEDS: TORSEMIDE 20 MG TAB PO SCH (07:53)
[2024-10-21] MEDS: SPIRONOLACTONE 12.5MG PER 1/2 TABLET PO SCH (07:53)
[2024-10-21] MEDS: METOPROLOL TART 12.5 MG PER 1/2 TAB PO SCH (07:54)
[2024-10-21] MEDS: INSULIN LISPRO (NovoLOG) PER UNIT SC SCH (07:55)
[2024-10-21] MEDS: HEPARIN SOD 5000 UNITS/ML 1 ML VIAL/SYRINGE SC SCH (07:55)
[2024-10-21 09:05] LABS: CALCIUM LEVEL 8.2 MG/DL (8.3-10.6); CARBON DIOXIDE LEVEL 35.0 MMOL/L (20-31); CHLORIDE LEVEL 94.0 MMOL/L (98-107); CREATININE FOR GFR 1.15 MG/DL (0.70-1.30); GLOMERULAR FILTRATION RATE 68.0 (>42); MAGNESIUM LEVEL 2.0 MG/DL (1.8-2.4); POTASSIUM SERUM 3.5 MMOL/L (3.5-5.1); SODIUM LEVEL 137.0 MMOL/L (136-145)
[2024-10-21 14:45] VITALS: BP 113/63; TEMP 97.7; O2SAT 95
[2024-10-21 14:47] LABS: CALCIUM LEVEL 8.8 MG/DL (8.3-10.6); CARBON DIOXIDE LEVEL 36.0 MMOL/L (20-31); CHLORIDE LEVEL 94.0 MMOL/L (98-107); CREATININE FOR GFR 1.16 MG/DL (0.70-1.30); GLOMERULAR FILTRATION RATE 67.3 (>42); MAGNESIUM LEVEL 2.1 MG/DL (1.8-2.4); POTASSIUM SERUM 4.0 MMOL/L (3.5-5.1); SODIUM LEVEL 141.0 MMOL/L (136-145)
[2024-10-21] MEDS: POTASSIUM CHLORIDE 10MEQ SR TABLET PO SCH (16:25)
[2024-10-21] MEDS: CALCIUM GLUCONATE 1,000 MG in DEXTROSE 5% (D5W) MINI-BAG PLU 100 ML IV ONE (16:26)
[2024-10-21 20:04] LABS: IONIZED CALCIUM 4.5 MG/DL (4.5-5.3)
[2024-10-21 20:22] VITALS: BP 136/81; TEMP 96.9; O2SAT 95
[2024-10-21 20:26] LABS: MAGNESIUM LEVEL 1.9 MG/DL (1.8-2.4); POTASSIUM SERUM 3.9 MMOL/L (3.5-5.1)
[2024-10-21 20:28] LABS: CALCIUM LEVEL 8.8 MG/DL (8.3-10.6); CARBON DIOXIDE LEVEL 35.0 MMOL/L (20-31); CHLORIDE LEVEL 94.0 MMOL/L (98-107); CREATININE FOR GFR 1.19 MG/DL (0.70-1.30); GLOMERULAR FILTRATION RATE 65.3 (>42); MAGNESIUM LEVEL 1.9 MG/DL (1.8-2.4); POTASSIUM SERUM 4.2 MMOL/L (3.5-5.1); SODIUM LEVEL 138.0 MMOL/L (136-145)
[2024-10-21 23:35] VITALS: BP 137/89; TEMP 97.1; O2SAT 96
[2024-10-22] VITALS (18 sets, daily range): BP systolic 122–150; BP diastolic 62–78; TEMP 97.1–97.8; O2SAT 83–99
[2024-10-22 02:42] LABS: CALCIUM LEVEL 8.5 MG/DL (8.3-10.6); CARBON DIOXIDE LEVEL 37.0 MMOL/L (20-31); CHLORIDE LEVEL 95.0 MMOL/L (98-107); CREATININE FOR GFR 1.14 MG/DL (0.70-1.30); GLOMERULAR FILTRATION RATE 68.8 (>42); MAGNESIUM LEVEL 1.9 MG/DL (1.8-2.4); POTASSIUM SERUM 4.2 MMOL/L (3.5-5.1); SODIUM LEVEL 139.0 MMOL/L (136-145)
[2024-10-22 07:50] LABS: CALCIUM LEVEL 8.5 MG/DL (8.3-10.6); CARBON DIOXIDE LEVEL 34.0 MMOL/L (20-31); CHLORIDE LEVEL 98.0 MMOL/L (98-107); CREATININE FOR GFR 1.04 MG/DL (0.70-1.30); GLOMERULAR FILTRATION RATE 76.8 (>42); MAGNESIUM LEVEL 1.8 MG/DL (1.8-2.4); POTASSIUM SERUM 4.1 MMOL/L (3.5-5.1); SODIUM LEVEL 141.0 MMOL/L (136-145)
[2024-10-22] MEDS ORDERED: POTASSIUM CHLORIDE 10MEQ SR TABLET PO SCH (09:00)
[2024-10-22] MEDS: CALCIUM GLUCONATE 1,000 MG in DEXTROSE 5% (D5W) MINI-BAG PLU 100 ML IV ONE (10:53)
[2024-10-22] MEDS: POTASSIUM CHLORIDE 10MEQ SR TABLET PO ONE (10:59)
[2024-10-22] MEDS: MAG SULF 1GM/100ML (MAG RUN) 1 GM in IV 1 EA IV ONE (12:15)
[2024-10-22 14:34] LABS: CALCIUM LEVEL 8.6 MG/DL (8.3-10.6); CARBON DIOXIDE LEVEL 33.0 MMOL/L (20-31); CHLORIDE LEVEL 98.0 MMOL/L (98-107); CREATININE FOR GFR 0.92 MG/DL (0.70-1.30); GLOMERULAR FILTRATION RATE 88.9 (>42); POTASSIUM SERUM 4.3 MMOL/L (3.5-5.1); SODIUM LEVEL 140.0 MMOL/L (136-145)
[2024-10-23] VITALS (31 sets, daily range): BP systolic 115–136; BP diastolic 72–85; TEMP 97–97.4; O2SAT 88–99
[2024-10-23] MEDS: VANCOMYCIN HCL 750 MG, VIAL MATE ADAPTER 1 EACH in NS 250 ML IV SCH (08:57)
[2024-10-23] MEDS: AMPICILLIN SOD/SULBACTAM SOD 3 GM in DEXTROSE 5% (D5W) MINI-BAG PLU 100 ML IV SCH (10:24)
[2024-10-23 12:27] LABS: BASO # 0.1 10^3/uL (0.0-0.2); BASO % 0.3 % (0.0-1.0); EOS # 0.2 10^3/uL (0.0-0.5); EOS % 1.2 % (0.0-3.0); LYMPH # 1.2 10^3/uL (1.5-5.0); LYMPH % 7.2 % (24.0-44.0); MONO # 1.7 10^3/uL (0.0-0.8); MONO % 10.5 % (2.0-8.0); NEUTROPHILS # 12.9 10^3/uL (1.5-8.5); NEUTROPHILS % 80.2 % (36.0-66.0); PLATELET COUNT, AUTOMATED 316 10^3/uL (150-450)
[2024-10-23] MEDS: ENOXAPARIN 40 MG/0.4 ML SYRINGE (J1650 PER 10MG) SC ONE (12:45)
[2024-10-23 12:49] LABS: ERYTHROCYTE SEDIMENTATION RATE 98 mm/hr (0-20)
[2024-10-23 12:50] LABS: CALCIUM LEVEL 8.5 MG/DL (8.3-10.6); CARBON DIOXIDE LEVEL 35 MMOL/L (20-31); CHLORIDE LEVEL 97 MMOL/L (98-107); CREATININE FOR GFR 0.97 MG/DL (0.70-1.30); GLOMERULAR FILTRATION RATE 83.5 (>42); POTASSIUM SERUM 4.5 MMOL/L (3.5-5.1); SODIUM LEVEL 139 MMOL/L (136-145)
[2024-10-23 13:00] LABS: C REACTIVE PROTEIN QUANTITATIV 15.31 MG/DL (<1.0)
[2024-10-23 14:30] LABS: MAGNESIUM LEVEL 1.9 MG/DL (1.8-2.4)
[2024-10-23 14:32] LABS: CPK CREATINE PHOSPHOKINASE < 15 U/L (46-171)
[2024-10-23 14:37] LABS: CK-MB VALUE MASS 1.7 NG/ML (<3.6); MB/CK RELATIVE INDEX 0.00 (< OR =4)
[2024-10-23] MEDS: CALCIUM GLUCONATE 1,000 MG in DEXTROSE 5% (D5W) MINI-BAG PLU 100 ML IV ONE (14:55)
[2024-10-23] MEDS: MAG SULF 1GM/100ML (MAG RUN) 1 GM in IV 1 EA IV ONE (18:18)
[2024-10-23] MEDS: ACETAMINOPHEN 325 MG TAB PO PRN (20:17)
[2024-10-24] VITALS (30 sets, daily range): BP systolic 121–132; BP diastolic 75–84; TEMP 96.9–97.7; O2SAT 90–97
[2024-10-24] MEDS ORDERED: ENOXAPARIN 40 MG/0.4 ML SYRINGE (J1650 PER 10MG) SC SCH (09:00)
[2024-10-25] VITALS (28 sets, daily range): BP systolic 119–137; BP diastolic 61–87; TEMP 96.6–97.5; O2SAT 90–99
[2024-10-25 09:37] LABS: BASO # 0.1 10^3/uL (0.0-0.2); BASO % 0.4 % (0.0-1.0); EOS # 0.2 10^3/uL (0.0-0.5); EOS % 1.2 % (0.0-3.0); LYMPH # 1.5 10^3/uL (1.5-5.0); LYMPH % 8.1 % (24.0-44.0); MONO # 1.8 10^3/uL (0.0-0.8); MONO % 10.0 % (2.0-8.0); NEUTROPHILS # 14.3 10^3/uL (1.5-8.5); NEUTROPHILS % 79.6 % (36.0-66.0)
[2024-10-25 09:43] LABS: IONIZED CALCIUM 4.1 MG/DL (4.5-5.3)
[2024-10-25 09:44] LABS: INR 1.23
[2024-10-25 09:59] LABS: CALCIUM LEVEL 8.2 MG/DL (8.3-10.6); CARBON DIOXIDE LEVEL 34 MMOL/L (20-31); CHLORIDE LEVEL 93 MMOL/L (98-107); CREATININE FOR GFR 0.83 MG/DL (0.70-1.30); GLOMERULAR FILTRATION RATE > 90.0 (>42); MAGNESIUM LEVEL 1.8 MG/DL (1.8-2.4); POTASSIUM SERUM 4.4 MMOL/L (3.5-5.1); SODIUM LEVEL 137 MMOL/L (136-145)
[2024-10-25] MEDS: CALCIUM GLUCONATE 1,000 MG in DEXTROSE 5% (D5W) MINI-BAG PLU 100 ML IV ONE (12:10)
[2024-10-25] MEDS: MAG SULF 1GM/100ML (MAG RUN) 1 GM in IV 1 EA IV SCH (13:21)
[2024-10-25] MEDS: CALCIUM CARBONATE 500 MG CHEW U/D PO SCH (17:04)
[2024-10-25] MEDS: MAGNESIUM OXIDE 400 MG TAB PO SCH (21:13)
[2024-10-26] VITALS (28 sets, daily range): BP systolic 127–138; BP diastolic 75–86; TEMP 97.2–97.8; O2SAT 93–99
[2024-10-26 05:04] LABS: IONIZED CALCIUM 4.5 MG/DL (4.5-5.3)
[2024-10-26 05:15] LABS: BASO # 0.1 10^3/uL (0.0-0.2); BASO % 0.3 % (0.0-1.0); EOS # 0.3 10^3/uL (0.0-0.5); EOS % 1.6 % (0.0-3.0); LYMPH # 1.5 10^3/uL (1.5-5.0); LYMPH % 8.8 % (24.0-44.0); MONO # 1.8 10^3/uL (0.0-0.8); MONO % 10.6 % (2.0-8.0); NEUTROPHILS # 13.4 10^3/uL (1.5-8.5); NEUTROPHILS % 78.0 % (36.0-66.0); PLATELET COUNT, AUTOMATED 304 10^3/uL (150-450)
[2024-10-26 05:48] LABS: CALCIUM LEVEL 8.3 MG/DL (8.3-10.6); CARBON DIOXIDE LEVEL 36 MMOL/L (20-31); CHLORIDE LEVEL 95 MMOL/L (98-107); CREATININE FOR GFR 0.88 MG/DL (0.70-1.30); GLOMERULAR FILTRATION RATE > 90.0 (>42); MAGNESIUM LEVEL 2.0 MG/DL (1.8-2.4); POTASSIUM SERUM 3.7 MMOL/L (3.5-5.1); SODIUM LEVEL 139 MMOL/L (136-145)
[2024-10-26 09:20] LABS: DIGOXIN LEVEL 0.6 NG/ML (0.8-2.0)
[2024-10-26] MEDS: CALCIUM GLUCONATE 1,000 MG in DEXTROSE 5% (D5W) MINI-BAG PLU 100 ML IV ONE (10:07)
[2024-10-27] VITALS (28 sets, daily range): BP systolic 120–133; BP diastolic 74–83; TEMP 97–97.3; O2SAT 92–98
[2024-10-27 05:43] LABS: BASO # 0.1 10^3/uL (0.0-0.2); BASO % 0.4 % (0.0-1.0); EOS # 0.3 10^3/uL (0.0-0.5); EOS % 1.5 % (0.0-3.0); LYMPH # 1.5 10^3/uL (1.5-5.0); LYMPH % 8.1 % (24.0-44.0); MONO # 1.8 10^3/uL (0.0-0.8); MONO % 9.6 % (2.0-8.0); NEUTROPHILS # 14.5 10^3/uL (1.5-8.5); NEUTROPHILS % 79.6 % (36.0-66.0); PLATELET COUNT, AUTOMATED 317 10^3/uL (150-450)
[2024-10-27 06:03] LABS: CALCIUM LEVEL 8.3 MG/DL (8.3-10.6); CARBON DIOXIDE LEVEL 35 MMOL/L (20-31); CHLORIDE LEVEL 94 MMOL/L (98-107); CREATININE FOR GFR 0.84 MG/DL (0.70-1.30); GLOMERULAR FILTRATION RATE > 90.0 (>42); MAGNESIUM LEVEL 1.9 MG/DL (1.8-2.4); POTASSIUM SERUM 4.1 MMOL/L (3.5-5.1); SODIUM LEVEL 137 MMOL/L (136-145)
[2024-10-27 13:41] LABS: C REACTIVE PROTEIN QUANTITATIV 13.09 MG/DL (<1.0)
[2024-10-27] MEDS: CALCIUM GLUCONATE 1,000 MG in DEXTROSE 5% (D5W) MINI-BAG PLU 100 ML IV ONE (13:43)
[2024-10-27 14:07] LABS: ERYTHROCYTE SEDIMENTATION RATE 125 mm/hr (0-20)
[2024-10-27] MEDS: MAG SULF 1GM/100ML (MAG RUN) 1 GM in IV 1 EA IV SCH (14:45)
[2024-10-27] MEDS: KETOROLAC 30 MG/ML 1 ML VIAL IV ONE (21:50)
[2024-10-28] VITALS (28 sets, daily range): BP systolic 118–134; BP diastolic 72–84; TEMP 97.2–98; O2SAT 90–100
[2024-10-28 05:26] LABS: BASO # 0.1 10^3/uL (0.0-0.2); BASO % 0.4 % (0.0-1.0); EOS # 0.3 10^3/uL (0.0-0.5); EOS % 1.8 % (0.0-3.0); LYMPH # 1.8 10^3/uL (1.5-5.0); LYMPH % 10.6 % (24.0-44.0); MONO # 1.4 10^3/uL (0.0-0.8); MONO % 8.1 % (2.0-8.0); NEUTROPHILS # 13.0 10^3/uL (1.5-8.5); NEUTROPHILS % 78.4 % (36.0-66.0); PLATELET COUNT, AUTOMATED 312 10^3/uL (150-450)
[2024-10-28 06:01] LABS: CALCIUM LEVEL 8.3 MG/DL (8.3-10.6); CARBON DIOXIDE LEVEL 34 MMOL/L (20-31); CHLORIDE LEVEL 95 MMOL/L (98-107); CREATININE FOR GFR 0.90 MG/DL (0.70-1.30); GLOMERULAR FILTRATION RATE > 90.0 (>42); MAGNESIUM LEVEL 2.2 MG/DL (1.8-2.4); POTASSIUM SERUM 4.1 MMOL/L (3.5-5.1); SODIUM LEVEL 139 MMOL/L (136-145)
[2024-10-28] MEDS: TAMSULOSIN 0.4 MG CAP PO SCH (21:24)
[2024-10-28] MEDS: LIDOCAINE 2% 5 ML JELLY UROJET TOP ONE (21:30)
[2024-10-28] MEDS: IBUPROFEN 800 MG TAB PO ONE (21:31)
[2024-10-29] VITALS (23 sets, daily range): BP systolic 119–146; BP diastolic 74–81; TEMP 96.6–97.8; O2SAT 86–100
[2024-10-29 06:06] LABS: BASO # 0.1 10^3/uL (0.0-0.2); BASO % 0.4 % (0.0-1.0); EOS # 0.4 10^3/uL (0.0-0.5); EOS % 2.4 % (0.0-3.0); LYMPH # 1.9 10^3/uL (1.5-5.0); LYMPH % 12.4 % (24.0-44.0); MONO # 1.1 10^3/uL (0.0-0.8); MONO % 7.3 % (2.0-8.0); NEUTROPHILS # 11.5 10^3/uL (1.5-8.5); NEUTROPHILS % 76.8 % (36.0-66.0); PLATELET COUNT, AUTOMATED 339 10^3/uL (150-450)
[2024-10-29 06:29] LABS: CALCIUM LEVEL 8.3 MG/DL (8.3-10.6); CARBON DIOXIDE LEVEL 37.0 MMOL/L (20-31); CHLORIDE LEVEL 96.0 MMOL/L (98-107); CREATININE FOR GFR 0.96 MG/DL (0.70-1.30); GLOMERULAR FILTRATION RATE 84.5 (>42); MAGNESIUM LEVEL 2.1 MG/DL (1.8-2.4); POTASSIUM SERUM 4.6 MMOL/L (3.5-5.1); SODIUM LEVEL 141.0 MMOL/L (136-145)
[2024-10-30] VITALS (30 sets, daily range): BP systolic 93–133; BP diastolic 55–89; TEMP 96.9–97.5; O2SAT 97–100
[2024-10-30 05:20] LABS: BASO # 0.1 10^3/uL (0.0-0.2); BASO % 0.4 % (0.0-1.0); EOS # 0.3 10^3/uL (0.0-0.5); EOS % 1.7 % (0.0-3.0); LYMPH # 1.6 10^3/uL (1.5-5.0); LYMPH % 9.9 % (24.0-44.0); MONO # 1.0 10^3/uL (0.0-0.8); MONO % 6.2 % (2.0-8.0); NEUTROPHILS # 13.4 10^3/uL (1.5-8.5); NEUTROPHILS % 81.1 % (36.0-66.0); PLATELET COUNT, AUTOMATED 327 10^3/uL (150-450)
[2024-10-30 05:42] LABS: CALCIUM LEVEL 8.3 MG/DL (8.3-10.6); CARBON DIOXIDE LEVEL 31 MMOL/L (20-31); CHLORIDE LEVEL 98 MMOL/L (98-107); CREATININE FOR GFR 0.76 MG/DL (0.70-1.30); GLOMERULAR FILTRATION RATE > 90.0 (>42); MAGNESIUM LEVEL 2.0 MG/DL (1.8-2.4); POTASSIUM SERUM 4.6 MMOL/L (3.5-5.1); SODIUM LEVEL 138 MMOL/L (136-145)
[2024-10-30] MEDS ORDERED: LIDOCAINE 2% 100 MG/5 ML SDV (FOR ANES.) As Ordered ONE (10:11)
[2024-10-30] MEDS ORDERED: PHENYLEPHRINE 10MG/ML 1ML VIAL As Ordered ONE (10:39)
[2024-10-30] MEDS ORDERED: ACETAMINOPHEN 1000MG/100ML IV BAG As Ordered ONE (11:45)
[2024-10-30] MEDS ORDERED: MIDAZOLAM INJ 2 MG/2 ML VIAL As Ordered ONE (11:59)
[2024-10-30] MEDS ORDERED: MORPHINE 2 MG/ML 1 ML VIAL IV PRN (12:20)
[2024-10-30] MEDS ORDERED: HYDROMORPHONE HCL 0.5 MG/0.5 ML SYRINGE IV PRN (12:20)
[2024-10-30] MEDS: NS 500 ML IV ONE (17:42)
[2024-10-30] MEDS: MIDODRINE 5 MG TAB PO ONE (17:51)
[2024-10-30] MEDS: KETOROLAC 30 MG/ML 1 ML VIAL IV ONE (18:49)
[2024-10-31] VITALS (18 sets, daily range): BP systolic 102–127; BP diastolic 63–83; TEMP 96.8–97.3; O2SAT 96–100
[2024-10-31 06:00] LABS: BASO # 0.1 10^3/uL (0.0-0.2); BASO % 0.5 % (0.0-1.0); CALCIUM LEVEL 7.9 MG/DL (8.3-10.6); CARBON DIOXIDE LEVEL 32.0 MMOL/L (20-31); CHLORIDE LEVEL 99.0 MMOL/L (98-107); CREATININE FOR GFR 0.95 MG/DL (0.70-1.30); EOS # 0.2 10^3/uL (0.0-0.5); EOS % 1.4 % (0.0-3.0); GLOMERULAR FILTRATION RATE 85.6 (>42); LYMPH # 2.2 10^3/uL (1.5-5.0); LYMPH % 16.6 % (24.0-44.0); MAGNESIUM LEVEL 2.1 MG/DL (1.8-2.4); MONO # 0.9 10^3/uL (0.0-0.8); MONO % 7.0 % (2.0-8.0); NEUTROPHILS # 9.7 10^3/uL (1.5-8.5); NEUTROPHILS % 73.7 % (36.0-66.0); PLATELET COUNT, AUTOMATED 278 10^3/uL (150-450); POTASSIUM SERUM 4.6 MMOL/L (3.5-5.1); SODIUM LEVEL 140.0 MMOL/L (136-145)
[2024-10-31] MEDS: MORPHINE 2 MG/ML 1 ML VIAL IV ONE (06:21)
[2024-10-31] MEDS: TAMSULOSIN 0.4 MG CAP PO ONE (09:03)
[2024-10-31] MEDS: FINASTERIDE 5 MG TAB PO SCH (09:03)
[2024-10-31] MEDS ORDERED: NALOXONE INJ 0.4 MG/1 ML VIAL IV PRN (11:15)
[2024-10-31] MEDS: HYDROMORPHONE HCL 0.5 MG/0.5 ML SYRINGE IV ONE (11:35)
[2024-10-31] MEDS: AMOXICILLIN 875 MG TAB PO SCH (13:45)
[2024-11-01] VITALS (18 sets, daily range): BP systolic 107–122; BP diastolic 55–75; TEMP 97.4–97.8; O2SAT 94–100
[2024-11-01 05:39] LABS: BASO # 0.1 10^3/uL (0.0-0.2); BASO % 0.5 % (0.0-1.0); EOS # 0.3 10^3/uL (0.0-0.5); EOS % 2.0 % (0.0-3.0); LYMPH # 2.0 10^3/uL (1.5-5.0); LYMPH % 15.2 % (24.0-44.0); MONO # 1.1 10^3/uL (0.0-0.8); MONO % 8.5 % (2.0-8.0); NEUTROPHILS # 9.5 10^3/uL (1.5-8.5); NEUTROPHILS % 73.0 % (36.0-66.0); PLATELET COUNT, AUTOMATED 305 10^3/uL (150-450)
[2024-11-01 05:59] LABS: CALCIUM LEVEL 8.5 MG/DL (8.3-10.6); CARBON DIOXIDE LEVEL 30 MMOL/L (20-31); CHLORIDE LEVEL 101 MMOL/L (98-107); CREATININE FOR GFR 0.82 MG/DL (0.70-1.30); GLOMERULAR FILTRATION RATE > 90.0 (>42); MAGNESIUM LEVEL 2.1 MG/DL (1.8-2.4); POTASSIUM SERUM 5.2 MMOL/L (3.5-5.1); SODIUM LEVEL 139 MMOL/L (136-145)
[2024-11-01] MEDS: TAMSULOSIN 0.4 MG CAP PO SCH (08:48)
[2024-11-02] VITALS (28 sets, daily range): BP systolic 95–126; BP diastolic 51–70; TEMP 97.5–98; O2SAT 94–99
[2024-11-02 05:05] LABS: PLATELET COUNT, AUTOMATED 321 10^3/uL (150-450)
[2024-11-02 05:32] LABS: C REACTIVE PROTEIN QUANTITATIV 5.20 MG/DL (<1.0); CALCIUM LEVEL 8.6 MG/DL (8.3-10.6); CARBON DIOXIDE LEVEL 28 MMOL/L (20-31); CHLORIDE LEVEL 99 MMOL/L (98-107); CREATININE FOR GFR 0.77 MG/DL (0.70-1.30); GLOMERULAR FILTRATION RATE > 90.0 (>42); POTASSIUM SERUM 4.8 MMOL/L (3.5-5.1); SODIUM LEVEL 136 MMOL/L (136-145)
[2024-11-02] MEDS: APIXABAN 5 MG TAB PO SCH (20:36)
[2024-11-03] VITALS (22 sets, daily range): BP systolic 92–122; BP diastolic 61–84; TEMP 97–98.7; O2SAT 94–99
[2024-11-03 05:28] LABS: PLATELET COUNT, AUTOMATED 355 10^3/uL (150-450)
[2024-11-03 06:00] LABS: CALCIUM LEVEL 8.8 MG/DL (8.3-10.6); CARBON DIOXIDE LEVEL 28.0 MMOL/L (20-31); CHLORIDE LEVEL 99.0 MMOL/L (98-107); CREATININE FOR GFR 1.06 MG/DL (0.70-1.30); GLOMERULAR FILTRATION RATE 75.0 (>42); POTASSIUM SERUM 4.6 MMOL/L (3.5-5.1); SODIUM LEVEL 137.0 MMOL/L (136-145)
[2024-11-03] MEDS ORDERED: APIXABAN 5 MG TAB PO SCH (10:55)
[2024-11-03] MEDS ORDERED: INSULANT SC (14:13)
[2024-11-03] MEDS ORDERED: FINA5TAB2 PO (14:13)
[2024-11-03] MEDS ORDERED: LEXA1TAB PO (14:13)
[2024-11-03] MEDS ORDERED: METO1TAB87 PO (14:13)
[2024-11-03] MEDS ORDERED: AMOX875T PO (14:13)
[2024-11-03] MEDS ORDERED: TAMS-18 PO (14:13)
[2024-11-03] MEDS ORDERED: OXYC-517 PO (14:13)
[2024-11-03] MEDS ORDERED: ELIQ5TAB PO (14:14)
[2024-11-03] MEDS: ESCITALOPRAM OXALATE 10 MG TABLET PO SCH (15:13)
== END 2024-11-03 15:17 | DRG 853 ==
LOC: M ED 14:16 → M ED INP 20:55 → M PCU 10-21 14:36
PROVIDERS: ADMIT Family Medicine; ATTEND Family Medicine
PROC: 0QBM0ZZ Excision of Left Tarsal, Open Approach (ICD-10-PCS; 2024-10-22)
PROC: 0Y6J0Z2 Detachment at Left Lower Leg, Mid, Open Approach (ICD-10-PCS; principal; 2024-10-30 09:15)
DX: A41.9 Sepsis, unspecified organism (principal); E43 Unspecified severe protein-calorie malnutrition; L97.429 Non-pressure chronic ulcer of left heel and midfoot with unspecified severity; I42.8 Other cardiomyopathies; I50.22 Chronic systolic (congestive) heart failure; M86.8X7 Other osteomyelitis, ankle and foot; I47.20 Ventricular tachycardia, unspecified; E87.3 Alkalosis; I96 Gangrene, not elsewhere classified; E11.621 Type 2 diabetes mellitus with foot ulcer; E11.69 Type 2 diabetes mellitus with other specified complication; I48.91 Unspecified atrial fibrillation; I49.3 Ventricular premature depolarization; L97.519 Non-pressure chronic ulcer of other part of right foot with unspecified severity; E83.51 Hypocalcemia; I11.0 Hypertensive heart disease with heart failure; E78.5 Hyperlipidemia, unspecified; E83.42 Hypomagnesemia; R33.9 Retention of urine, unspecified; R29.6 Repeated falls; R26.89 Other abnormalities of gait and mobility; M54.50 Low back pain, unspecified; G89.29 Other chronic pain; E87.6 Hypokalemia; Z95.810 Presence of automatic (implantable) cardiac defibrillator; Z79.01 Long term (current) use of anticoagulants; Z79.4 Long term (current) use of insulin; Z79.899 Other long term (current) drug therapy

== ENCOUNTER 2025-03-20 13:11 | Emergency (ER) | payer MEDICARE ==
[~2025-03-20 13:11] MED LIST changes: +AMOX875T PO; -BACTDSTA PO; +FINA5TAB2 PO; +INSULANT SC; +OXYC-517 PO; +SULF-8 PO; +TAMS-18 PO; +TORS20TA2 PO
[2025-03-20 18:01] VITALS: TEMP 97.5
[2025-03-20 20:00] VITALS: BP 131/70; O2SAT 100
== END 2025-03-20 20:16 | disposition home or self-care (01) ==
LOC: M ED 13:11
DX: S00.03XA Contusion of scalp, initial encounter (principal); W06.XXXA Fall from bed, initial encounter; Y92.129 Unspecified place in nursing home as the place of occurrence of the external cause; Y93.9 Activity, unspecified; Y99.9 Unspecified external cause status; I48.91 Unspecified atrial fibrillation; E11.9 Type 2 diabetes mellitus without complications; I10 Essential (primary) hypertension; E78.5 Hyperlipidemia, unspecified; Z79.899 Other long term (current) drug therapy